=== PATIENT | female | born 1965 | race Caucasian/White ===

== ENCOUNTER 2020-04-22 18:00 | Emergency (ER) | payer OTHER, SELFPAY ==
[2020-04-22] VITALS (13 sets, daily range): BP systolic 146–158; BP diastolic 70–79; PULSE 78–92; RESP 16–18; TEMP 36.6–37.2; O2SAT 97–100
--- NOTE | 2020-04-22 18:01 | DI.CT.S_ITS ---
PROCEDURE: CT ANGIO CHEST PE PROTOCOL INDICATIONS: pleuritic chest pain, short of breath, hypercoag TECHNIQUE: After the administration of intravenous contrast, 2 mm thick sections acquired from the pulmonary apices to the posterior costophrenic angles. 3-dimensional maximum intensity projection (MIP) coronal and sagittal reformats were then acquired through the thorax. For radiation dose reduction, the following was used: automated exposure control, adjustment of mA and/or kV according to patient size. COMPARISON: None. FINDINGS: Image quality: Excellent. Pulmonary arteries: Pulmonary arteries are normal in size, and demonstrate no intraluminal filling defects to suggest central pulmonary embolism. Lungs and pleura: Lungs are clear. No pleural effusions or pneumothorax. Central and peripheral airways are patent. Mediastinum: Heart size is normal, without pericardial effusion. No mediastinal or hilar adenopathy. Thoracic aorta is normal in caliber and enhancement. Esophagus is normal in caliber, without hiatal hernia. Bones and chest wall: No suspicious bony lesions. Ribs and thoracic spine appear intact throughout. Thyroid gland is within normal limits. No axillary or supraclavicular adenopathy. Abdomen: Visualized upper abdominal solid organs appear normal in the early arterial phase of enhancement. Gallbladder is surgically absent. IMPRESSION: 1. No evidence of pulmonary emboli. 2. Bilateral lungs are clear. 3. No mediastinal or hilar lymphadenopathy. Dictated by: Wilfredo Leal M.D. on 04/22/2020 at 17:56 Approved by: Wilfredo Leal M.D. on 04/22/2020 at 18:09
[2020-04-22 18:20] LABS: COVID19 -Nasal RAPID Negative (Negative)
--- NOTE | 2020-04-22 18:21 | PC.NURSE ---
Pt arrived via [facility] with SOB, L shoulder pain radiating to L armpit and L calf pain starting yesterday. received 324mg ASA and 250ml LR in flight. H/o Sjorgens syndrome, lupus, arthritis, and hypothyroid, no daily anticoagulation. R/O PE from Dr oNlan on [place]. AAOx3 and transferred herself over from flight stretcher to ED stretcher and WC to BR. NSR 92, Lungs clear. denies calf pain on palpation at this time. no edema noted. 99-100% RA breathing easy and unlabored. 20G RAC labs obtained and sent. urine obtained and sent. RT in for EKG. COVID swabbed at triage with negative result. Placed on cardiac monitoring. Awaiting further assessment.
[2020-04-22 18:22] LABS: Add Manual Diff / Slide Review NO; Bacteria Urine None Seen; Basophils Absolute Auto 0 /uL (0-100); Basophils Percent Auto 0.8 % (0-2); Eosinophils Absolute Auto 100 /uL (0-450); Eosinophils Percent Auto 2.3 % (2-4); Hematocrit 40.4 % (36-46); Hemoglobin 13.8 g/dL (12.0-16.0); Lymphocytes Absolute Auto 1300 /uL (1100-4500); Lymphocytes Percent Auto 28.3 % (25-40); Mean Corpuscular HGB Conc 34.3 % (30-36); Mean Corpuscular Hemoglobin 28.3 PG (26-34); Mean Corpuscular Volume 82.5 fL (80-100); Monocytes Absolute Auto 400 /uL (0-900); Monocytes Percent Auto 9.7 % (3-14); Neutrophils Absolute Auto 2700 /uL (1500-7000); Neutrophils Percent Auto 58.9 % (50-75); Platelet Count 162 X10^3/uL (150-400); RBC Urine None Seen (0-5/HPF); White Blood Cell Count 4.6 X10^3/uL (4.5-11.0)
[2020-04-22 18:23] LABS: Appearance Urine UA CLEAR; Bilirubin Urine UA NEGATIVE (NEGATIVE); Color Urine UA YELLOW; Glucose Urine UA NEGATIVE (Negative); Ketones Urine UA NEGATIVE (NEGATIVE); Leukocyte Esterase Urine UA 1+ (NEGATIVE); Nitrite Urine UA NEGATIVE (Negative); Occult Blood Urine UA NEGATIVE (Negative); Protein Urine UA NEGATIVE (Negative); Urobilinogen Urine UA 0.2 E.U./dL (0.2)
[2020-04-22 18:25] LABS: pH Urine UA 5.5 (4.5-8.0)
[2020-04-22 18:31] LABS: Culture Indicated Urine Specimen Cultured; WBC Urine 1-5/HPF (0-5/HPF)
[2020-04-22 18:36] LABS: Lactate (Lactic Acid) 0.9 mmol/L (0.7-2.1)
[2020-04-22 18:39] LABS: D Dimer < 200 ng/mL (<230)
[2020-04-22 18:40] LABS: Alanine Aminotransferase 50 IU/L (<35); Albumin 4.2 g/dL (3.5-5.0); Albumin Globulin Ratio 1.8 (1.0-2.8); Alkaline Phosphatase 76 U/L (38-126); Aspartate Aminotransferase 39 IU/L (14-36); BUN Creatinine Ratio 22.2 (6-22); Bilirubin Total 0.4 mg/dL (0.2-1.3); Blood Urea Nitrogen 14 mg/dL (7-17); Calcium 9.1 mg/dL (8.4-10.2); Carbon Dioxide 27 mmol/L (22-32); Chloride 107 mmol/L (98-107); Creatine Kinase 57 U/L (30-135); Estimated Glomerular Filt Rate > 60.0 mL/min (>60); Globulin 2.4 g/dL (1.7-4.1); Glucose 100 mg/dL (70-100); HEMOLYSIS < 15 (0-50); Lactate Dehydrogenase 473 U/L (313-618); Potassium 3.5 mmol/L (3.4-5.1); Sodium 138 mmol/L (137-145); Total Protein 6.6 g/dL (6.3-8.2)
[2020-04-22 18:41] LABS: C-Reactive Protein Quant < 0.5 mg/dL (<1.0)
[2020-04-22 18:49] LABS: NT-proBNP (BNP-Adult 18+) 209 pg/mL (<125); Troponin I < 0.012 ng/mL (0.01-0.034)
[2020-04-22 18:51] LABS: Procalcitonin < 0.05 ng/mL (<0.5)
[2020-04-22 19:08] LABS: Thyroid Stimulating Hormone 1.54 uIU/mL (0.47-4.68)
--- NOTE | 2020-04-22 19:08 | ED.CHESTPAIN ---
HPI - Chest Pain General Chief Complaint: Shortness of Breath/Dyspnea Stated Complaint: sob Time Seen by Provider: 04/22/20 18:01 Source: patient and EMS Mode of arrival: EMS Limitations: no limitations History of Present Illness HPI narrative: 55F nonsmoker with history of asthma, Sjogren's, SLE, and Antiphospholipid syndrome presents by [facility] at her physicians request ([place]) to evaluate for chest pain, shortness of breath and some left calf pain. She developed some central chest squeezing pressure last night while in bed that was without provocation, palliation, or radiation. She had no other concerning symptoms such as dizziness, weakness, or shortness of breath. Nor any N/V/D or unexplained weakness. Related Data Home Medications Medication Instructions Recorded Confirmed hydroxychloroquine [Plaquenil] #0 07/08/16 Previous Rx's Medication Instructions Recorded progesterone micronized 100 mg PO HS #90 cap 02/19/16 epinephrine 0.3 mg IJ SEE INSTRUCTIONS #2 syr 10/28/16 levalbuterol tartrate [Xopenex HFA] 2 puff INH Q6HP PRN #15 gm 10/28/16 levothyroxine [Synthroid] 50 mcg PO QAM #90 tab 12/15/16 thyroid (pork) [Nature-Throid] 32.5 mg PO QAM #90 tab 12/15/16 ketorolac 10 mg PO Q6H PRN #14 tab 04/22/20 Allergies Allergy/AdvReac Type Severity Reaction Status Date / Time cephalexin [CEPHALEXIN] Allergy Intermediate Unverified 08/23/17 12:29 Penicillins [PENICILLINS] Allergy Intermediate Unverified 08/23/17 12:29 Sulfa (Sulfonamide Allergy Intermediate Unverified 08/23/17 12:29 Antibiotics) [SULFA (SULFONAMIDE ANTIBIOTICS)] codeine [CODEINE] Allergy Mild Unverified 08/23/17 12:29 crab [CRAB] AdvReac Severe anaphylacti Unverified 08/23/17 12:29 c Review of Systems Constitutional Constitutional: Denies chills, Denies fatigue, Denies fever(s), Denies frequent falls, Denies lethargy and Denies weakness Eyes Eyes: Denies change in vision, Denies eye discharge, Denies irritation and Denies loss of vision ENT Ears, Nose, Mouth, and Throat: Denies change in voice, Denies dizziness, Denies neck pain, Denies sore throat and Denies throat swelling Cardiovascular Cardiovascular: Reports chest pain, Denies irregular heart rhythm, Denies lightheadedness, Denies palpitations, Denies dyspnea, Denies dyspnea on exertion and Denies orthopnea Respiratory Respiratory: Reports cough, Denies dyspnea, Denies dyspnea on exertion and Denies wheezing Gastrointestinal Gastrointestinal: Denies abdominal pain, Denies change in bowel habits, Denies diarrhea, Denies nausea and Denies vomiting Musculoskeletal Musculoskeletal: Denies neck pain and Denies numbness Integumentary/Breasts Skin/Breast: Denies pruritus, Denies erythema, Denies rash and Denies wounds Neurologic Neurologic: Denies behavioral changes, Denies confusion, Denies dizziness, Denies frequent falls, Denies loss of vision, Denies numbness and Denies weakness Psychiatric Psychiatric: Denies anxiety, Denies behavioral changes, Denies confusion, Denies depression, Denies homicidal ideation and Denies suicidal ideation Endocrine Endocrine: Denies fatigue, Denies flushing and Denies palpitations Hematologic/Lymphatic Hematologic/Lymphatic: Denies easy bruising Allergic/Immunologic Allergic/Immunologic: Denies urticaria, Denies throat swelling and Denies wheezing Patient History Smoking Status: Never smoker alcohol intake frequency: 0-2 drinks per day Substance Use Type: does not use Exam Narrative Exam Narrative: GENERAL: [55] year old patient appears stated age. Well-nourished, well-developed patient, in mild distress. HEAD: Atraumatic. Normocephalic. EYES: Pupils equal round and reactive. Extraocular motions intact. No scleral icterus. No injection or drainage. ENT: Nose without bleeding, purulent drainage. Throat without erythema, tonsillar hypertrophy or exudate. Airway patent. NECK: Trachea midline. Non tender CARDIOVASCULAR: Regular rate and rhythm without murmurs, gallops, or rubs. RESPIRATORY: Clear to auscultation. Breath sounds equal bilaterally. No wheezes, rales, or rhonchi. GASTROINTESTINAL: Abdomen soft, non-tender, nondistended. EXTREMITIES: No edema or joint tenderness. Notably, no left calf pain, swelling, redness or warmth BACK: Nontender without deformity or crepitance. No flank tenderness. NEURO: AOx3. SKIN: No rash or erythema of visible areas Initial Vital Signs Initial Vital Signs: Vital Signs Temperature 97.9 F 04/22/20 18:03 Pulse Rate 78 04/22/20 18:03 Respiratory Rate 16 04/22/20 18:03 Blood Pressure 146/72 H 04/22/20 18:03 Pulse Oximetry 97 04/22/20 18:03 Course Orders Ordered: ED Orders 04/22/20 18:00 COVID19 Stat 04/22/20 18:01 CT angio chest PE protocol Stat 04/22/20 18:02 EKG-12 Lead Stat 04/22/20 18:13 C-Reactive Protein Quant Stat Complete Blood Count AUTO DIFF Stat Comprehensive Metabolic Panel Stat D Dimer Stat Ferritin Stat Lactate (Lactic Acid) Stat Lactate Dehydrogenase Stat NT-proBNP (BNP-Adult 18+) Stat Procalcitonin Stat Thyroid Stimulating Hormone Stat Troponin & CK Cardiac Panel Stat Urinalysis and Microscopic Stat Urine Culture Stat 04/22/20 19:31 EKG-12 Lead Stat 04/22/20 20:23 Troponin I Stat Discontinued Medications Sodium Chloride (Normal Saline 0.9%) 1,000 mls @ 125 mls/hr IV CONT RAMIREZ Last Admin: 04/22/20 19:09 Dose: Not Given Documented by: LORA Ketorolac Tromethamine (Ketorolac 60 Mg/2 Ml Vial) 15 mg IV NOW ONE Stop: 04/22/20 19:32 Last Admin: 04/22/20 19:51 Dose: 15 mg Documented by: LORA Vital Signs Vital signs: Vital Signs - 8 hr 04/22/20 18:03 04/22/20 18:09 04/22/20 18:10 Temperature 97.9 F Pulse Rate 78 91 H 88 Respiratory Rate 16 Blood Pressure 146/72 H 146/72 H Pulse Oximetry 97 99 99 04/22/20 18:46 04/22/20 18:48 04/22/20 18:49 Temperature 98.9 F Pulse Rate 83 84 86 Respiratory Rate Blood Pressure 158/77 H Pulse Oximetry 99 98 99 04/22/20 19:00 04/22/20 19:30 04/22/20 20:00 Temperature Pulse Rate 90 87 84 Respiratory Rate Blood Pressure Pulse Oximetry 100 98 98 04/22/20 20:30 04/22/20 21:05 04/22/20 21:06 Temperature Pulse Rate 82 92 H Respiratory Rate Blood Pressure 157/70 H Pulse Oximetry 99 100 04/22/20 22:01 Temperature Pulse Rate 79 Respiratory Rate 18 Blood Pressure 146/79 H Pulse Oximetry 98 MDM - Chest Pain Lab Data Result diagrams: 04/22/20 18:13 04/22/20 18:13 Labs: Lab Results 04/22/20 04/22/20 04/22/20 Range/Units 18:00 18:13 18:13 WBC (4.5-11.0) X10^3/uL RBC (4.0-5.2) X10^6/uL Hgb (12.0-16.0) g/dL Hct (36-46) % MCV (80-100) fL MCH (26-34) PG MCHC (30-36) % RDW (11.6-14.8) % Plt Count (150-400) X10^3/uL Neut % (Auto) (50-75) % Lymph % (Auto) (25-40) % [place] % (Auto) (3-14) % Eos % (Auto) (2-4) % Baso % (Auto) (0-2) % Neut # (Auto) (7667-2878) /uL Lymph # (Auto) (8898-1399) /uL [place] # (Auto) (0-900) /uL Eos # (Auto) (0-450) /uL Baso # (Auto) (0-100) /uL D-Dimer < 200 (<230) ng/mL Sodium (137-145) mmol/L Potassium (3.4-5.1) mmol/L Chloride (98-107) mmol/L Carbon Dioxide (22-32) mmol/L BUN (7-17) mg/dL Creatinine (0.52-1.04) mg/dL Estimated GFR (>60) mL/min BUN/Creatinine Ratio (6-22) Glucose (70-100) mg/dL Lactate (0.7-2.1) mmol/L Calcium (8.4-10.2) mg/dL Ferritin (11-264) ng/mL Total Bilirubin (0.2-1.3) mg/dL AST (14-36) IU/L ALT (<35) IU/L Alkaline Phosphatase (38-126) U/L Lactate Dehydrogenase (313-618) U/L Total Creatine Kinase (30-135) U/L CK-MB (CK-2) CK-MB (CK-2) Rel Index Troponin I (0.01-0.034) ng/mL C-Reactive Protein (<1.0) mg/dL NT-Pro-B Natriuret Pep (<125) pg/mL Total Protein (6.3-8.2) g/dL Albumin (3.5-5.0) g/dL Globulin (1.7-4.1) g/dL Albumin/Globulin Ratio (1.0-2.8) Procalcitonin < 0.05 (<0.5) ng/mL TSH (0.47-4.68) uIU/mL Urine Color Urine Appearance Urine pH (4.5-8.0) Ur Specific [place] (1.000-1.035) Urine Protein (Negative) Urine Glucose (UA) (Negative) g/dL Urine Ketones (NEGATIVE) Urine Occult Blood (Negative) Urine Nitrate (Negative) Urine Bilirubin (NEGATIVE) Urine Urobilinogen (0.2) E.U./dL Ur Leukocyte Esterase (NEGATIVE) Urine RBC (0-5/HPF) Urine WBC (0-5/HPF) Urine Bacteria (None) Ur Culture Indicated? COVID-19 PCR Negative (Negative) 04/22/20 04/22/20 04/22/20 Range/Units 18:13 18:13 18:13 WBC 4.6 (4.5-11.0) X10^3/uL RBC 4.90 (4.0-5.2) X10^6/uL Hgb 13.8 (12.0-16.0) g/dL Hct 40.4 (36-46) % MCV 82.5 (80-100) fL MCH 28.3 (26-34) PG MCHC 34.3 (30-36) % RDW 13.0 (11.6-14.8) % Plt Count 162 (150-400) X10^3/uL Neut % (Auto) 58.9 (50-75) % Lymph % (Auto) 28.3 (25-40) % [place] % (Auto) 9.7 (3-14) % Eos % (Auto) 2.3 (2-4) % Baso % (Auto) 0.8 (0-2) % Neut # (Auto) 2700 (0907-8210) /uL Lymph # (Auto) 1300 (0801-2585) /uL [place] # (Auto) 400 (0-900) /uL Eos # (Auto) 100 (0-450) /uL Baso # (Auto) 0 (0-100) /uL D-Dimer (<230) ng/mL Sodium 138 (137-145) mmol/L Potassium 3.5 (3.4-5.1) mmol/L Chloride 107 (98-107) mmol/L Carbon Dioxide 27 (22-32) mmol/L BUN 14 (7-17) mg/dL Creatinine 0.63 (0.52-1.04) mg/dL Estimated GFR > 60.0 (>60) mL/min BUN/Creatinine Ratio 22.2 H (6-22) Glucose 100 (70-100) mg/dL Lactate (0.7-2.1) mmol/L Calcium 9.1 (8.4-10.2) mg/dL Ferritin 61 (11-264) ng/mL Total Bilirubin 0.4 (0.2-1.3) mg/dL AST 39 H (14-36) IU/L ALT 50 H (<35) IU/L Alkaline Phosphatase 76 (38-126) U/L Lactate Dehydrogenase 473 (313-618) U/L Total Creatine Kinase 57 (30-135) U/L CK-MB (CK-2) TNP CK-MB (CK-2) Rel Index TNP Troponin I < 0.012 (0.01-0.034) ng/mL C-Reactive Protein < 0.5 (<1.0) mg/dL NT-Pro-B Natriuret Pep 209 H (<125) pg/mL Total Protein 6.6 (6.3-8.2) g/dL Albumin 4.2 (3.5-5.0) g/dL Globulin 2.4 (1.7-4.1) g/dL Albumin/Globulin Ratio 1.8 (1.0-2.8) Procalcitonin (<0.5) ng/mL TSH 1.54 (0.47-4.68) uIU/mL Urine Color Urine Appearance Urine pH (4.5-8.0) Ur Specific [place] (1.000-1.035) Urine Protein (Negative) Urine Glucose (UA) (Negative) g/dL Urine Ketones (NEGATIVE) Urine Occult Blood (Negative) Urine Nitrate (Negative) Urine Bilirubin (NEGATIVE) Urine Urobilinogen (0.2) E.U./dL Ur Leukocyte Esterase (NEGATIVE) Urine RBC (0-5/HPF) Urine WBC (0-5/HPF) Urine Bacteria (None) Ur Culture Indicated? COVID-19 PCR (Negative) 04/22/20 04/22/20 04/22/20 Range/Units 18:13 18:13 20:23 WBC (4.5-11.0) X10^3/uL RBC (4.0-5.2) X10^6/uL Hgb (12.0-16.0) g/dL Hct (36-46) % MCV (80-100) fL MCH (26-34) PG MCHC (30-36) % RDW (11.6-14.8) % Plt Count (150-400) X10^3/uL Neut % (Auto) (50-75) % Lymph % (Auto) (25-40) % [place] % (Auto) (3-14) % Eos % (Auto) (2-4) % Baso % (Auto) (0-2) % Neut # (Auto) (8585-0528) /uL Lymph # (Auto) (6316-6099) /uL [place] # (Auto) (0-900) /uL Eos # (Auto) (0-450) /uL Baso # (Auto) (0-100) /uL D-Dimer (<230) ng/mL Sodium (137-145) mmol/L Potassium (3.4-5.1) mmol/L Chloride (98-107) mmol/L Carbon Dioxide (22-32) mmol/L BUN (7-17) mg/dL Creatinine (0.52-1.04) mg/dL Estimated GFR (>60) mL/min BUN/Creatinine Ratio (6-22) Glucose (70-100) mg/dL Lactate 0.9 (0.7-2.1) mmol/L Calcium (8.4-10.2) mg/dL Ferritin (11-264) ng/mL Total Bilirubin (0.2-1.3) mg/dL AST (14-36) IU/L ALT (<35) IU/L Alkaline Phosphatase (38-126) U/L Lactate Dehydrogenase (313-618) U/L Total Creatine Kinase (30-135) U/L CK-MB (CK-2) CK-MB (CK-2) Rel Index Troponin I < 0.012 (0.01-0.034) ng/mL C-Reactive Protein (<1.0) mg/dL NT-Pro-B Natriuret Pep (<125) pg/mL Total Protein (6.3-8.2) g/dL Albumin (3.5-5.0) g/dL Globulin (1.7-4.1) g/dL Albumin/Globulin Ratio (1.0-2.8) Procalcitonin (<0.5) ng/mL TSH (0.47-4.68) uIU/mL Urine Color Yellow Urine Appearance Clear Urine pH 5.5 (4.5-8.0) Ur Specific [place] 1.010 (1.000-1.035) Urine Protein Negative (Negative) Urine Glucose (UA) Negative (Negative) g/dL Urine Ketones Negative (NEGATIVE) Urine Occult Blood Negative (Negative) Urine Nitrate Negative (Negative) Urine Bilirubin Negative (NEGATIVE) Urine Urobilinogen 0.2 (0.2) E.U./dL Ur Leukocyte Esterase 1+ H (NEGATIVE) Urine RBC None seen (0-5/HPF) Urine WBC 1-5/hpf (0-5/HPF) Urine Bacteria None seen (None) Ur Culture Indicated? Specimen cultured COVID-19 PCR (Negative) Imaging Data CT scan - chest: Radiologist's Impression: [address] [id number] Scan ReportSigned Patient: Anca Abdullahi LMR#: [id number]: [id number]:[id number]/Sex: 55 / FDate of Service: 04/22/20Loc: EDAccession Number: [id number] Procedure: CT angio chest PE protocol Ordering Provider: Soto Luna D.O. PROCEDURE: CT ANGIO CHEST PE PROTOCOL INDICATIONS: pleuritic chest pain, short of breath, hypercoag TECHNIQUE: After the administration of intravenous contrast, 2 mm thick sections acquired from the pulmonary apices to the posterior costophrenic angles. 3-dimensional maximum intensity projection (MIP) coronal and sagittal reformats were then acquired through the thorax. For radiation dose reduction, the following was used: automated exposure control, adjustment of mA and/or kV according to patient size. COMPARISON: None. FINDINGS: Image quality: Excellent. Pulmonary arteries: Pulmonary arteries are normal in size, and demonstrate no intraluminal filling defects to suggest central pulmonary embolism. Lungs and pleura: Lungs are clear. No pleural effusions or pneumothorax. Central and peripheral airways are patent. Mediastinum: Heart size is normal, without pericardial effusion. No mediastinal or hilar adenopathy. Thoracic aorta is normal in caliber and enhancement. Esophagus is normal in caliber, without hiatal hernia. Bones and chest wall: No suspicious bony lesions. Ribs and thoracic spine appear intact throughout. Thyroid gland is within normal limits. No axillary or supraclavicular adenopathy. Abdomen: Visualized upper abdominal solid organs appear normal in the early arterial phase of enhancement. Gallbladder is surgically absent. IMPRESSION: 1. No evidence of pulmonary emboli. 2. Bilateral lungs are clear. 3. No mediastinal or hilar lymphadenopathy. Dictated by: Wilfredo Leal M.D. on 04/22/2020 at 17:56 Approved by: Wilfredo Leal M.D. on 04/22/2020 at 18:09 MDM Narrative Medical decision making narrative: Multiple etiologies for patient's symptoms considered including: [Pulmonary embolism given pleuritic chest pain, recent left calf pain, hypercoagulable medical history, but clearly thought unlikely given negative D-dimer and no findings on CT angiogram. Left calf DVT thought unlikely given lack of classic findings on exam and a negative D-dimer. Cardiac ischemia considered but thought less likely given lack of exertional symptoms, ischemic change on EKG, negative troponin x2. Pneumonia considered but thought less likely given lack of findings on imaging.] Patient's symptoms improved over duration of stay with above-stated therapies. Findings and discharge diagnosis discussed with patient/family followed by verbalization of understanding Return precautions discussed with patient/family whom verbalize understanding. Discharge Plan Departure Patient Disposition: Home Clinical Impression: Atypical chest pain Instructions: DI for Atypical Chest Pain Activity Restrictions/Additional Instructions: *You have been diagnosed with [atypical chest pain, no evidence of pneumonia, pulmonary embolism or cardiac event.] *What to do: *Take medications as directed *Follow up with your primary care provider in 2-3 days, call for an appointment. Let them know you were seen in the Emergency Department and that we ask that you be seen in follow up *Return to ER if you should have any new, worsening or concerning symptoms Prescriptions: New ketorolac 10 mg tablet 10 mg PO Q6H PRN (Reason: pain) Qty: 14 RF: 0 No Action progesterone micronized 100 MG capsule 100 mg PO HS Qty: 90 RF: 1 hydroxychloroquine [Plaquenil] 200 mg tablet Qty: 0 RF: 0 epinephrine 0.3 MG/0.3 ML auto-injector 0.3 mg IJ SEE INSTRUCTIONS Qty: 2 RF: 1 levalbuterol tartrate [Xopenex HFA] 45 MCG/INH HFA aerosol inhaler 2 puff INH Q6HP PRNQty: 15 RF: 0 thyroid (pork) [Nature-Throid] 32.5 MG tablet 32.5 mg PO QAM Qty: 90 RF: 0 levothyroxine [Synthroid] 50 MCG tablet 50 mcg PO QAM Qty: 90 RF: 0 Referrals: Bobby Nolan MD [Primary Care Provider] -
[2020-04-22 19:12] LABS: Ferritin 61 ng/mL (11-264)
[2020-04-22] MEDS: KETOROLAC 60 MG/2 ML VIAL 15 MG IV (19:51)
[2020-04-22 20:53] LABS: Troponin I < 0.012 ng/mL (0.01-0.034)
== END 2020-04-22 22:01 | disposition home or self-care (01) ==
PROVIDERS: Emergency Provider Emergency Medicine; PCP Family Medicine; Referring Provider Family Medicine
DX: R07.89 Other chest pain (principal); R06.02 Shortness of breath; M79.605 Pain in left leg
CPT/HCPCS: 36415; 71275; 80053; 81001; 82550; 82728; 83605; 83615; 83880; 84145; 84443; 84484; 85025; 85379; 86140; 87086; 87635; 93005; 93010; 96374; 99283; 99284; J1885; Q9967

== ENCOUNTER → 2021-01-05 12:14 | Outpatient (CLI) | payer OTHER, SELFPAY | PROVIDERS: PCP Family Medicine; Referring Provider Physician Assistant; Visit Provider Physician Assistant | DX: N39.0 Urinary tract infection, site not specified (principal) | CPT/HCPCS: 87086 ==

== ENCOUNTER → 2021-01-14 16:46 | Outpatient (CLI) | payer OTHER, SELFPAY ==
[2021-01-15 18:15] LABS: RBC Urine None Seen (0-5/HPF)
[2021-01-15 18:42] LABS: Appearance Urine UA CLEAR; Bilirubin Urine UA NEGATIVE (NEGATIVE); Color Urine UA YELLOW; Glucose Urine UA NEGATIVE (Negative); Ketones Urine UA NEGATIVE (NEGATIVE); Leukocyte Esterase Urine UA TRACE (NEGATIVE); Nitrite Urine UA NEGATIVE (Negative); Occult Blood Urine UA NEGATIVE (Negative); Protein Urine UA NEGATIVE (Negative); Urobilinogen Urine UA 0.2 E.U./dL (0.2)
[2021-01-15 18:54] LABS: pH Urine UA 5.5 (4.5-8.0)
[2021-01-15 18:55] LABS: Bacteria Urine Occasional (0-1); Calcium Oxalate Crystals Urine Few; Culture Indicated Urine Specimen Cultured; Squamous Epithelial Cell Urine 0-1 /HPF (0-5/HPF); WBC Urine 1-5/HPF (0-5/HPF)
== END ==
PROVIDERS: PCP Family Medicine; Visit Provider Family Medicine
DX: Z91.89 Other specified personal risk factors, not elsewhere classified (principal)
CPT/HCPCS: 81001; 87086

== ENCOUNTER 2022-02-19 19:16 | Emergency (ER) | payer OTHER, SELFPAY ==
--- NOTE | 2022-02-19 19:13 | DI.RAD.S_ITS ---
PROCEDURE: XR ANKLE LT MIN 3V INDICATIONS: fall with ankle/knee pain, largely over lateral malleolus TECHNIQUE: 3 views of the ankle were acquired. COMPARISON: None. FINDINGS: Bones: No fractures or dislocations. Ankle mortise is normally aligned. No suspicious bony lesions. Mild degenerative joint disease. There is a small intra-articular body anterior to the tibiotalar joint. Calcaneal spurring. Soft tissues: No tibiotalar joint effusion. Achilles tendon appears normal. IMPRESSION: 1. No acute osseous abnormalities. 2. Mild degenerative joint disease. 3. And intra-articular body in the anterior tibiotalar joint. 4. Calcaneal spurring. Dictated by: Tiffany Brandon M.D. on 02/19/2022 at 20:13 Approved by: Tiffany Brandon M.D. on 02/19/2022 at 20:14
--- NOTE | 2022-02-19 19:13 | DI.RAD.S_ITS ---
PROCEDURE: XR KNEE LT 3V INDICATIONS: fall with ankle/knee pain TECHNIQUE: 3 views of the knee were acquired. COMPARISON: [facility], MR, MR KNEE LEFT WITHOUT CONTRAST, 07/05/2018, 18:04. [facility], CR, XR KNEE 4+ VIEWS LEFT, 03/25/2021, 15:24. FINDINGS: Bones: No fractures or dislocations. No suspicious bony lesions. Mild tricompartmental knee joint degeneration. Soft tissues: No joint effusion. No suspicious soft tissue calcifications. IMPRESSION: No acute osseous abnormalities. Mild degenerative joint disease. Dictated by: Tiffany Brandon M.D. on 02/19/2022 at 20:14 Approved by: Tiffany Brandon M.D. on 02/19/2022 at 20:15
[2022-02-19 19:20] VITALS: BP 145/65; PULSE 83; RESP 18; BMI 32.5
--- NOTE | 2022-02-19 19:28 | ED_ITS ---
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 She was in her normal state of health and was stepping off of her deck when she rolled her ankle and fell which resulted in significant ankle and knee pain. She denies any head neck or back injury. She denies prodromal symptoms such as dizziness, weakness or lightheadedness nor any chest pain or shortness of breath. She has significant pain in both ankle and knee and though there is no obvious deformity she can not weightbear due to this pain. She denies any numbness, tingling or weakness Related Data Home Medications Medication Instructions Recorded Confirmed hydroxychloroquine 200 mg tablet ##0 07/08/16 10/02/20 (Plaquenil) bupropion HCl 150 mg 24 hr tablet, 150 mg PO QAM 01/24/22 01/24/22 extended release hydroxychloroquine 200 mg tablet 400 mg PO DAILY 01/24/22 01/24/22 Previous Rx's Medication Instructions Recorded progesterone micronized 100 mg 100 mg PO HS #90 caps 02/19/16 capsule epinephrine 0.3 mg/0.3 mL 0.3 mg (0.3 mL) IJ SEE 10/28/16 injection, auto-injector INSTRUCTIONS ##2 levalbuterol tartrate 45 2 puff INH Q6HP PRN ##15 10/28/16 mcg/actuation aerosol inhaler (Xopenex HFA) levothyroxine 50 mcg tablet 50 mcg PO QAM #90 tabs 12/15/16 (Synthroid) thyroid (pork) 32.5 mg tablet 32.5 mg PO QAM #90 tabs 12/15/16 (Nature-Throid) Allergies Allergy/AdvReac Type Severity Reaction Status Date / Time cephalexin [CEPHALEXIN] Allergy Intermediate Verified 01/13/21 14:31 nitrofurantoin Allergy Intermediate tongue Verified 01/13/21 14:31 [From Macrobid] swelling Penicillins [PENICILLINS] Allergy Intermediate Verified 01/13/21 14:31 Sulfa (Sulfonamide Allergy Intermediate Verified 01/13/21 14:31 Antibiotics) [SULFA (SULFONAMIDE ANTIBIOTICS)] codeine [CODEINE] Allergy Mild Verified 01/13/21 14:31 crab [CRAB] AdvReac Severe anaphylacti Verified 01/13/21 14:31 c doxycycline AdvReac Intermediate vomitting Verified 01/13/21 14:31 Review of Systems Review of Systems Narrative: GENERAL: Denies chills, fatigue, malaise, fever, sweats. HEENT: Denies sinus pain, ear pain, sore throat, difficulty swallowing, dizziness. RESPIRATORY: Denies dyspnea, cough, wheezing, hemoptysis, sputum. CARDIOVASCULAR: Denies chest pain, palpitations, orthopnea, edema, GASTROINTESTINAL: Denies nausea, vomiting, abdominal pain, diarrhea, constipation, melena. : Denies dysuria, frequency, incontinence, hematuria, urinary retention. MUSCULOSKELETAL: See HPI SKIN: Denies rash, skin lesions, or other NEUROLOGIC: Denies weakness, headache, numbness, change in speech, confusion, seizures, incoordination. PSYCHIATRIC: No concerning psychosocial issues. 12 point review of systems is negative except for those stated above Patient History Social History Smoking Status: Never smoker Smoking Status: Never smoker alcohol intake frequency: 0-2 drinks per day Substance Use Type: does not use Exam Narrative Exam Narrative: GENERAL: [57] year old patient appears stated age. Well-developed patient, in mild distress. Complaining of ankle and knee pain, GCS 15 HEAD: Atraumatic. Normocephalic. EYES: Pupils equal round and reactive. Extraocular motions intact. No scleral icterus. No injection or drainage. ENT: Nose without bleeding, purulent drainage. Throat without erythema, tonsillar hypertrophy or exudate. Airway patent. NECK: Trachea midline. Non tender CARDIOVASCULAR: Regular rate and rhythm without murmurs, gallops, or rubs. RESPIRATORY: Clear to auscultation. Breath sounds equal bilaterally. No wheezes, rales, or rhonchi. GASTROINTESTINAL: Abdomen soft, non-tender, nondistended. EXTREMITIES: Left knee with tenderness to palpation, minimal bruising, no obvious deformity or effusion, no ligamentous laxity or instability. Left ankle is in splint by EMS, no obvious deformity, sensation and range of motion of toes intact, dorsalis pedis pulse intact. Tender to palpate of lateral malleolus BACK: Nontender without deformity or crepitance. No flank tenderness. NEURO: AOx3. SKIN: No rash or erythema of visible areas Initial Vital Signs Initial Vital Signs: Vital Signs Pulse Rate 83 02/19/22 19:20 Respiratory Rate 18 02/19/22 19:20 Blood Pressure 145/65 H 02/19/22 19:20 Course Orders Ordered: ED Orders 02/19/22 19:13 XR ankle LT min 3V Stat XR knee LT 3V Stat 02/19/22 20:23 CT LE LT wo con Stat Discontinued Medications Acetaminophen (Acetaminophen 325 Mg Tablet) 975 mg PO NOW ONE Stop: 02/19/22 20:24 Last Admin: 02/19/22 20:54 Dose: 975 mg Documented By: AT Vital Signs Vital signs: Vital Signs - 8 hr 02/19/22 19:20 02/19/22 22:10 Pulse Rate 83 70 Respiratory Rate 18 18 Blood Pressure 145/65 H 137/65 Pulse Oximetry 99 Oxygen Delivery Method Room Air MDM - Extremity Injury (Lower) Imaging Data Extremity x-ray #1: Radiologist's Impression: Left knee impression: No acute osseous abnormalities. Mild degenerative joint disease Extremity x-ray #2: Radiologist's Impression: No acute osseous abnormalities CT LE: Radiologist's Impression: Anca Abdullahi??57??F??1965 ? Allergy/Adv: cephalexin, nitrofurantoin, Penicillins, Sulfa (Sulfonamide Antibiotics), codeine, crab, doxycycline (More??) Close Lower Extremity CT (Signed) Flako Treviño - 02/19/22 Knee X-Ray 02/19/22 Ankle X-Ray 02/19/22 Chest CTA (Signed) Wilfredo Leal - 04/22/20 [place] [address] CT Scan Report Signed Patient: Anca Abdullahi MR#: [id number] : 1965 Acct:[id number] Age/Sex: 57 / F Date of Service: 02/19/22 Loc: ED Accession Number: [id number] ?? Procedure: CT LE LT wo con Ordering Provider: Soto Luna D.O. PROCEDURE:? CT LE LT W CON ? INDICATIONS:? fall with severe pain in knee and ankle, cannot weightbear ? TECHNIQUE:? Noncontrast 3-mm axial sections acquired from the distal tibial shaft to the talar dome, with coronal and sagittal reformats..? ? ? COMPARISON:? [facility], CR, XR KNEE LT 3V, 02/19/2022, 19:31.? [facility], CR, XR ANKLE LT MIN 3V, 02/19/2022, 19:31. ? FINDINGS:? Image quality:? Excellent.? ? Bones:? No trauma found.? No bone lesion identified. ? Soft tissues:? No sign of inflammation or gas within the soft tissues.? No foreign body seen. ? IMPRESSION:? Normal left lower extremity from knee through ankle.? Please note that MR scanning may detect bone bruising or ligamentous injury that is not identifiable by CT scanning or plain film imaging. ? ? Dictated by: Flako Treviño M.D. on 02/19/2022 at 21:46 ? ? Approved by: Flako Treviño M.D. on 02/19/2022 at 21:48 ? Discharge Plan Departure Patient Disposition: Home Clinical Impression: Severe ankle sprain Instructions: DI for Ankle Sprain Activity Restrictions/Additional Instructions: *You have been diagnosed with [left ankle sprain without radiographic evidence of fracture or dislocation] *What to do: *Please continue to take your regular medications as directed. [ ] New medication prescriptions sent to your pharmacy: [ ] [ ] New medication written as a paper prescription [x] Tylenol and occasional Motrin for pain *Please follow up with Dr. Faye Blanca] of [facility] in 2-3 days, call for an appointment. Let them know you were seen in the Emergency Department and that we ask that you be seen in follow up. We will electronically transmit a record of today's note if your PCP is in our system *Return to Emergency Department if you should have any new, worsening or concerning symptoms, such as [worsening pain, significant swelling, cold extremities, numbness, tingling, weakness or other bothersome symptoms Prescriptions: No Action progesterone micronized 100 MG capsule 100 mg PO HS Qty: 90 1RF hydroxychloroquine [Plaquenil] 200 mg tablet Qty: 0 epinephrine 0.3 MG/0.3 ML auto-injector 0.3 mg IJ SEE INSTRUCTIONS Qty: 2 1RF levalbuterol tartrate [Xopenex HFA] 45 MCG/INH HFA aerosol inhaler 2 puff INH Q6HP PRNQty: 15 0RF thyroid (pork) [Nature-Throid] 32.5 MG tablet 32.5 mg PO QAM Qty: 90 0RF levothyroxine [Synthroid] 50 MCG tablet 50 mcg PO QAM Qty: 90 0RF bupropion HCl 150 mg tablet extended release 24 hr 150 mg PO QAM Rx Instructions: Take 1 tablet (150 mg) by mouth daily. REFILLS 5 hydroxychloroquine 200 mg tablet 400 mg PO DAILY Rx Instructions: Take 400 mg by mouth daily. Referrals: Bobby Nolan MD [Primary Care Provider] - Visit Report Forms: Patient Portal/API
--- NOTE | 2022-02-19 20:23 | DI.CT.S_ITS ---
PROCEDURE: CT LE LT W CON INDICATIONS: fall with severe pain in knee and ankle, cannot weightbear TECHNIQUE: Noncontrast 3-mm axial sections acquired from the distal tibial shaft to the talar dome, with coronal and sagittal reformats.. COMPARISON: [facility], CR, XR KNEE LT 3V, 02/19/2022, 19:31. [facility], CR, XR ANKLE LT MIN 3V, 02/19/2022, 19:31. FINDINGS: Image quality: Excellent. Bones: No trauma found. No bone lesion identified. Soft tissues: No sign of inflammation or gas within the soft tissues. No foreign body seen. IMPRESSION: Normal left lower extremity from knee through ankle. Please note that MR scanning may detect bone bruising or ligamentous injury that is not identifiable by CT scanning or plain film imaging. Dictated by: Flako Treviño M.D. on 02/19/2022 at 21:46 Approved by: Flako Treviño M.D. on 02/19/2022 at 21:48
[2022-02-19] MEDS: ACETAMINOPHEN 325 MG TABLET 975 MG PO (20:54)
[2022-02-19 22:10] VITALS: BP 137/65; PULSE 70; RESP 18; O2SAT 99
== END 2022-02-19 22:25 | disposition home or self-care (01) ==
PROVIDERS: Emergency Provider Emergency Medicine; PCP Family Medicine
DX: S93.402A Sprain of unspecified ligament of left ankle, initial encounter (principal); W18.30XA Fall on same level, unspecified, initial encounter
CPT/HCPCS: 73562; 73610; 73700; 99283; 99284

== ENCOUNTER → 2022-03-13 14:42 | Outpatient (CLI) | payer OTHER, SELFPAY ==
--- NOTE | 2022-03-13 | DI.MRI.S_ITS ---
PROCEDURE: MR ANKLE RT WO CON INDICATIONS: Sprain of other ligament of left ankle, initial en TECHNIQUE: Noncontrast sagittal T1 spin echo and T2 fast spin echo with fat saturation, axial proton density fast spin echo and T2 fast spin echo with fat saturation, coronal T1 spin echo and T2 fast spin echo with fat saturation through the ankle/hindfoot. COMPARISON: [facility], CT, CT LE LT WO CON, 02/19/2022, 21:21. FINDINGS: Image quality: Excellent. Bones and joints: Marrow edema is noted involving tip of medial malleolus and adjacent anterior weight-bearing portion of talus without definite fracture line suggestive of bony contusion. No other area of abnormal marrow signal. No other area of abnormal marrow signal. No hindfoot coalitions. No osteochondral injuries of the talar dome. Small plantar calcaneal enthesophyte is seen. There is small tibiotalar joint effusion, no gross loose bodies. Medial structures: Mildly thickened posterior tibialis tendon and flexor digitorum longus tendons at the level of medial malleolus tip and mid to distal talus is seen with small amount of fluid distending tendon sheath suggestive of low-grade tenosynovitis. The flexor hallucis longus tendon is intact. The posterior tibial neurovascular bundle appears normal within the tarsal tunnel, without extrinsic mass effect. Both deltoid ligament and spring ligament complex are attenuated with intrasubstance T2 hyperintense signal suggestive of sprain/low to moderate grade partial-thickness tear. Lateral structures: The anterior talofibular, calcaneofibular, and posterior talofibular ligaments appear markedly attenuated with intrasubstance T2 hyperintense signal particularly involving anterior talofibular ligament. More superiorly, the anterior and posterior tibiofibular ligaments appear intact, as is the intermalleolar ligament. The tibiofibular syndesmosis is normal in width at 2 mm or less. The peroneus longus and brevis tendons are thickened with small amount of fluid extension extending from the level of mid to distal calcaneus to the level of tarsal metatarsal joints. Adjacent bony peroneal tubercle and retrotrochlear prominence are normal in size. The sinus tarsi demonstrates normal fatty signal, without edema, fibrosis, or cyst formation. Visualized sinus tarsi components (cervical ligament, interosseous talocalcaneal ligament, roots of the inferior extensor retinaculum) appear normal. The calcaneonavicular and calcaneocuboid components of the bifurcate ligament appear intact. The dorsal calcaneocuboid ligament appears intact. Anterior structures: The tibialis anterior, extensor hallucis longus, and extensor digitorum longus tendons appear intact. The dorsal talonavicular ligament appears intact. Posterior and plantar structures: Achilles tendon is intact. Thickened medial band of plantar fascia at its calcaneal insertion is seen. No abductor digiti quinti muscle atrophy to suggest Rojas neuropathy. IMPRESSION: 1. Bony contusion involving tip of medial malleolus and adjacent medial periphery of talus weight-bearing portion. No other area of abnormal marrow signal. No fracture or dislocation. Small tibiotalar joint effusion, no gross loose bodies. 2. Low-grade tenosynovitis involving posterior tibialis tendon and flexor digitorum longus tendon as above. Low to moderate grade tenosynovitis involving peroneus tendons as above. No full-thickness ankle tendon rupture. 3. Low-grade sprain/partial-thickness tear involving deltoid ligament and spring ligament complex. Moderate grade sprain/partial-thickness tear involving anterior and posterior talofibular ligaments and calcaneofibular ligament. 4. Well-defined plantar calcaneal enthesophyte with thickened medial band of plantar fascia suggestive of low-grade plantar fasciitis. Dictated by: Wilfredo Leal M.D. on 03/14/2022 at 9:03 Approved by: Wilfredo Leal M.D. on 03/14/2022 at 9:17
== END ==
PROVIDERS: PCP Family Medicine; Referring Provider Family Medicine; Visit Provider Family Medicine
DX: S93.492A Sprain of other ligament of left ankle, initial encounter (principal); S90.02XA Contusion of left ankle, initial encounter; S93.422A Sprain of deltoid ligament of left ankle, initial encounter; M25.472 Effusion, left ankle; M65.872 Other synovitis and tenosynovitis, left ankle and foot; S93.412A Sprain of calcaneofibular ligament of left ankle, initial encounter; M77.32 Calcaneal spur, left foot
CPT/HCPCS: 73721

== ENCOUNTER → 2022-03-25 14:08 | Outpatient (CLI) | payer OTHER, SELFPAY ==
--- NOTE | 2022-03-25 14:11 | DI.US.S_ITS ---
PROCEDURE: US PERIPH VENOUS LOW EXTREM LT INDICATIONS: SWELLING/HARD LUMP IN CALF TECHNIQUE: Real-time imaging, as well as color and pulse Doppler interrogation, were performed of the lower extremity deep veins from the inguinal ligament to the popliteal fossa. COMPARISON: None. FINDINGS: The common femoral, femoral and popliteal veins are normally compressible, and free of intraluminal thrombus. Color and pulse Doppler demonstrate normal phasic intraluminal flow. There is normal augmentation response to distal compression maneuver. Ill-defined fluid is seen adjacent to lateral calf muscle and tendon extending from mid calf to distal calf/upper ankle and is of indeterminate significance. IMPRESSION: 1. No evidence of DVT in visualized left lower extremity veins. 2. Fluid along posterior lateral aspect of mid to distal left lower leg as above. If indicated, consider MRI of ankle/lower leg for evaluation of internal derangement. Dictated by: Wilfredo Leal M.D. on 03/25/2022 at 16:15 Approved by: Wilfredo Leal M.D. on 03/25/2022 at 16:17
== END ==
PROVIDERS: PCP Family Medicine; Referring Provider Orthopaedic Surgery Foot and Ankle Surgery; Visit Provider Orthopaedic Surgery Foot and Ankle Surgery
DX: R22.42 Localized swelling, mass and lump, left lower limb (principal); S93.422A Sprain of deltoid ligament of left ankle, initial encounter; M79.89 Other specified soft tissue disorders
CPT/HCPCS: 93971

== ENCOUNTER 2025-01-24 11:01 | Observation (INO) | payer OTHER, SELFPAY ==
[2025-01-24] VITALS (29 sets, daily range): BP systolic 99–175; BP diastolic 48–74; PULSE 66–80; RESP 12–28; TEMP 35.6–37.1; O2SAT 92–100; BMI 34.0
--- NOTE | 2025-01-24 | DI.ECHO.S_ITS ---
[facility] : : [address] : [place] : : [address] : : Phone: [phone] Echocardiogram Report + + :Name: MARLEN JIMENES Study Date: 01/24/2025 Height: 61 in : [facility] ReadingLocation: Weight: 180 lb : : Gender: Female BSA: 1.8 m2 : :: 1965 Age: 60 yrs BP: 116/74 mmHg: :Reason For Study: TIA : :Ordering Physician: CHET, : :ROGER Hassan Performed By: Neil Marc : :Referring: ROGER ROSENBERG : + + Interpretation Summary The ejection fraction is estimated to be 55-60%. Normal diastolic function. The right ventricle is normal in size and function. Pulmonary artery pressures cannot be estimated because of the lack of a measurable TR jet velocity but the IVC suggests a CVP of around 3 mmHg. Doppler interrogation and injection of saline echo contrast shows no evidence for an interatrial shunt. Procedure: A two-dimensional transthoracic echocardiogram with color flow and Doppler was performed. The study quality was technically adequate. There is no prior echocardiogram noted for this patient. A saline contrast injection was performed to assess for cardiac shunting. The patient was in normal sinus rhythm during the exam. Left Ventricle: The left ventricle is normal in size. Left ventricular wall thickness is borderline increased. Left ventricular systolic function is normal. The ejection fraction is estimated to be 55-60%. There are no focal wall motion abnormalities. Normal diastolic function. Right Ventricle: The right ventricle is normal in size and function. Atria: The left atrial size is normal. Right atrial size is normal. Doppler interrogation and injection of saline echo contrast shows no evidence for an interatrial shunt. Bubble study was captured on image frame(s) # [id number]. Mitral Valve: The mitral valve leaflets appear to open well. There is no mitral valve stenosis. There is trace mitral regurgitation. Aortic Valve: The aortic valve is trileaflet. The aortic valve opens well. There is no aortic valve stenosis. No aortic regurgitation is present. Tricuspid Valve: The tricuspid valve leaflets are thin and pliable. There is trace tricuspid regurgitation. Pulmonary artery pressures cannot be estimated because of the lack of a measurable TR jet velocity but the IVC suggests a CVP of around 3 mmHg. Pulmonic Valve: The pulmonic valve is not well seen, but is grossly normal. There is trace pulmonic regurgitation. Great Vessels: The aortic root is normal size. The ascending aorta is normal in size. The aortic arch could not be visualized. The IVC is of normal diameter and collapses greater than 50% with a sniff. This suggests a low right atrial pressure of 3 mm Hg. Pericardium/ Pleura There is no pericardial effusion. MMode/2D Measurements & Calculations LVIDd: 4.2 cm LVOT diam: 2.0 cm LVIDs: 2.7 cm Ao root diam: 2.8 cm FS: 36.5 % asc Aorta Diam: 2.7 cm IVSd: 0.98 cm LVPWd: 0.96 cm LV frank. diameter/BSA (cm/m^2): 2.3 LV sys. diameter/BSA (cm/m^2): 1.5 LA A2 area: 14.0 cm2 IVC diam: 1.7 cm LA A4 area: 17.0 cm2 LA length (vol): 5.1 cm LA vol: 39.5 ml LA vol index: 21.8 ml/m2 RVD1 (basal): 2.3 cm RVD2 (mid): 1.9 cm TAPSE: 2.0 cm Doppler Measurements & Calculations Ao V2 max: 184.0 cm/sec LVOT Max Og: 113.5 cm/sec Ao V2 mean: 125.8 cm/sec LV V1 max P.1 mmHg Ao max P.5 mmHg LV V1 VTI: 23.3 cm Ao mean P.0 mmHg EMA(I,D): 2.1 cm2 Ao V2 VTI: 33.5 cm EMA(V,D): 1.9 cm2 sev ratio: 0.69 EMA indexed to BSA (cm^2/m^2): 1.2 MV E max og: 81.6 cm/sec TR max og: 211.7 cm/sec MV A max og: 89.3 cm/sec TR max P.9 mmHg MV E/A: 0.91 PA V2 max: 131.0 cm/sec Med Peak E' Og: 9.5 cm/sec PA V2 mean: 90.3 cm/sec E/E' med: 8.5 PA mean P.7 mmHg Lat Peak E' Og: 7.9 cm/sec PA pr(Accel): 27.6 mmHg E/E' lat: 10.3 E/e' average: 9.4 MV dec time: 0.19 sec SV(LVOT): 70.6 ml Reading Physician:05:14 PM
--- NOTE | 2025-01-24 11:22 | DI.CT.S_ITS ---
PROCEDURE: CT ANGIO HEAD AND NECK INDICATIONS: neuro deficit TECHNIQUE: After the administration of intravenous contrast, 1 mm thick sections acquired from the aortic arch through the [place] of [place]. 3-dimensional ukkvmqk-mculbjdoq-ikobynvwyp (MIP) and/or volume rendering reformats were acquired of the central intracranial vasculature and neck separately. For radiation dose reduction, the following was used: automated exposure control, adjustment of mA and/or kV according to patient size. COMPARISON: None. FINDINGS: Image quality: Diagnostic. Cerebral CT Angiogram: Internal carotid arteries: No acute findings. Intracranial ICA are patent with no significant stenosis. No occlusion. No aneurysm. Anterior cerebral arteries: Unremarkable. No significant stenosis. No occlusion. No aneurysm. Middle cerebral arteries: Unremarkable. No significant stenosis. No occlusion. No aneurysm. Posterior cerebral arteries: Unremarkable. No significant stenosis. No occlusion. No aneurysm. Basilar artery: Unremarkable. No significant stenosis. No occlusion. No aneurysm. Vertebral arteries: Unremarkable as visualized. Dural venous sinuses: Unremarkable given phase of enhancement. Other: Arterial phase appearance of the brain parenchyma is unremarkable. Neck CT Angiogram: Internal carotid arteries: Unremarkable. No significant stenosis. No dissection or occlusion. Common carotid arteries: Unremarkable. No significant stenosis. No dissection or occlusion. External carotid arteries: Unremarkable. No occlusion. Vertebral arteries: Unremarkable. No significant stenosis. No dissection or occlusion. Aortic Arch and Mediastinum: Partially visualized aortic arch unremarkable without evidence of aneurysm. Origins of the great vessels unremarkable. Other: Right thyroid 1.9 cm nodule.. IMPRESSION: No significant intracranial arterial abnormality is seen. No significant abnormality is seen within the arteries of the neck. Indeterminate right thyroid nodule. Recommend follow-up outpatient thyroid ultrasound for further evaluation. Any quantitative measurements of stenosis were performed using NASCET criteria. Approved by: Jin yBrd M.D. on 01/24/2025 at 12:04
--- NOTE | 2025-01-24 11:22 | DI.CT.S_ITS ---
PROCEDURE: CT HEAD/BRAIN WO CON INDICATIONS: neuro deficit TECHNIQUE: Noncontrast 4.5 mm thick angled axial sections acquired from the foramen magnum to the vertex, with coronal and sagittal reformats. For radiation dose reduction, the following was used: automated exposure control, adjustment of mA and/or kV according to patient size. COMPARISON: None. FINDINGS: Image quality: Diagnostic. CSF spaces: Basal cisterns are patent. No extra-axial fluid collections. Ventricles are normal in size and shape. Brain: No midline shift. No intracranial mass effect or hemorrhage. Anne- white matter interface is normal. Skull and face: Calvarium and visualized facial bones are intact, without suspicious lesions. Sinuses: Visualized sinuses and mastoids are clear. IMPRESSION: No acute intracranial pathology. Approved by: Jin Byrd M.D. on 01/24/2025 at 11:59
--- NOTE | 2025-01-24 11:23 | EKG_ITS ---
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
[2025-01-24 11:30] LABS: Add Manual Diff / Slide Review NO; Hematocrit 38.0 % (36-46); Hemoglobin 13.6 g/dL (12.0-16.0); Lymphocytes Absolute Auto 1000 /uL (1100-4500); Mean Corpuscular HGB Conc 35.7 % (30-36); Mean Corpuscular Hemoglobin 29.2 PG (26-34); Mean Corpuscular Volume 81.8 fL (80-100); Platelet Count 170 X10^3/uL (150-400)
[2025-01-24 11:38] LABS: INR 1.1 (0.9-1.3); Prothrombin Time 12.4 SECONDS (9.4-12.5)
--- NOTE | 2025-01-24 11:38 | PC.NURSE ---
Patient reports history of a TIA earlier this year and reports ongoing LEFT leg weakness since that event. Patient reporting being unsteady with ambulation and generalized weakness now. Patient denies current chest pain, headache and nausea. States the chest pain, nausea and headache were earlier this morning.
[2025-01-24 11:40] LABS: PTT Partial Thromboplastin Tim 29 SECONDS (25.1-36.5)
[2025-01-24 11:43] LABS: Alanine Aminotransferase 47 IU/L (<35); Albumin 4.4 g/dL (3.5-5.0); Albumin Globulin Ratio 1.8 (1.0-2.8); Alkaline Phosphatase 87 U/L (38-126); Blood Urea Nitrogen 14 mg/dL (7-17); Calcium 9.4 mg/dL (8.4-10.2); Carbon Dioxide 25 mmol/L (22-32); Chloride 98 mmol/L (98-107); Creatine Kinase 86 U/L (30-135); Estimated Glomerular Filt Rate > 60 mL/min (>60); Ethanol (ETOH) < 10 mg/dL (<10); Globulin 2.5 g/dL (1.7-4.1); Glucose 98 mg/dL (70-99); HEMOLYSIS < 15 (0-50); Potassium 3.7 mmol/L (3.4-5.1); Sodium 133 mmol/L (137-145); Total Protein 6.9 g/dL (6.3-8.2)
--- NOTE | 2025-01-24 11:46 | ED.NEUROSD ---
HPI - Neuro Symptoms/Deficit General Chief Complaint: Neuro Symptoms/Deficit Stated Complaint: Code stroke-LKW 01/23/25 2200,ataxia,blurred vision History of Present Illness HPI Narrative: This is a 52-year-old female who reports a history of TIA but has a baseline neurologic deficits. Also has a history of lupus. She is brought in by EMS with a headache nausea and ataxia. Reports that throughout the day yesterday she had a headache. The patient does get headaches but this headache seemed more persistent than usual and she says she felt ?off?. She has baseline left arm and left leg weakness since August of this year when she had what she said was at ?TIA?, she was seen in [facility] for this and I have requested records. She says that she went to bed at 10:00 p.m. last night and woke up this morning more unsteady than usual. EMS was called, they found her to be somewhat hypertensive, with a normal blood glucose and ataxia with left-sided arm and leg weakness. Had some nausea received antiemetics prior to arrival at the hospital and then was transported here. Related Data Home Medications ?Medication ?Instructions ?Recorded ?Confirmed hydroxychloroquine 200 mg tablet ##0 07/08/16 10/02/20 (Plaquenil) bupropion HCl 150 mg 24 hr tablet, 150 mg PO QAM 01/24/22 01/24/22 extended release hydroxychloroquine 200 mg tablet 400 mg PO DAILY 01/24/22 01/24/22 Previous Rx's ?Medication ?Instructions ?Recorded progesterone micronized 100 mg 100 mg PO HS #90 caps 02/19/16 capsule epinephrine 0.3 mg/0.3 mL 0.3 mg (0.3 mL) IJ SEE 10/28/16 injection, auto-injector INSTRUCTIONS ##2 levalbuterol tartrate 45 2 puff INH Q6HP PRN ##15 10/28/16 mcg/actuation aerosol inhaler (Xopenex HFA) levothyroxine 50 mcg tablet 50 mcg PO QAM #90 tabs 12/15/16 (Synthroid) thyroid (pork) 32.5 mg tablet 32.5 mg PO QAM #90 tabs 12/15/16 (Nature-Throid) Allergies Allergy/AdvReac Type Severity Reaction Status Date / Time cephalexin (CEPHALEXIN) Allergy Intermediate Verified 01/13/21 14:31 nitrofurantoin (From Allergy Intermediate tongue Verified 01/13/21 14:31 Macrobid) swelling Penicillins (PENICILLINS) Allergy Intermediate Verified 01/13/21 14:31 Sulfa (Sulfonamide Allergy Intermediate Verified 01/13/21 14:31 Antibiotics) (SULFA (SULFONAMIDE ANTIBIOTICS)) codeine (CODEINE) Allergy Mild Verified 01/13/21 14:31 crab (CRAB) AdvReac Severe anaphylacti Verified 01/13/21 14:31 c doxycycline AdvReac Intermediate vomitting Verified 01/13/21 14:31 Patient History Medical History (Updated 01/24/25 @ 15:11 by Flex Welsh MD) Lupus Sjogren's disease Hypothyroidism TIA (transient ischemic attack) UTI (urinary tract infection) alcohol intake frequency: 0-2 drinks per day Exam Initial Vital Signs Initial Vital Signs: Vital Signs Pulse Rate 79 01/24/25 11:06 Pulse Oximetry 100 01/24/25 11:06 Vital signs are reviewed Const Other: Alert fully oriented HENMN HENMN Other: Normocephalic and atraumatic Neck Other: Supple, no carotid bruit Resp Other: Normal respiratory effort lungs are clear Cardio Other: Regular rhythm rate no murmur rub or gallop Skin Other: Warm and dry Neuro Other: Alert and oriented. Pupils are equal round and reactive extraocular movements are intact no nystagmus no facial droop tongue protrudes to midline uvula elevates in the midline. Has downward drift of the left leg has a ataxia of the left arm and leg has decreased sensation in the left arm and leg. Speech is fluent no visual field cuts. No facial palsy. By the patient's report only the ataxia is new compared to her baseline. Course Orders Ordered: ED Orders 01/24/25 11:22 CT angio head and neck Stat CT head/brain wo con Stat EKG-12 Lead Stat 01/24/25 11:23 Complete Blood Count AUTO DIFF Stat Comprehensive Metabolic Panel Stat Ethanol (ETOH) Stat PTT Partial Thromboplastin Tao Stat Prothrombin Time INR Stat Troponin & CK Cardiac Panel Stat 01/24/25 11:33 COVID19 -Nasal RAPID Stat 01/24/25 12:07 Urinalysis and Microscopic Stat Urine Drug Screen, Rapid Stat 01/24/25 15:13 Consult to Occupational Therapy Evaluate & Treat Consult to Physical Therapy Evaluate & Treat 01/25/25 MR head/brain wo con Stat 01/25/25 05:00 Basic Metabolic Panel Routine Albuterol (Albuterol 2.5 Mg/3 Ml Neb (Adult)) 2.5 mg INH Q6H PRN PRN Reason: Wheezing Bupropion HCl (Bupropion Xl 150 Mg Tab) 150 mg PO DAILY RAMIREZ Enoxaparin Sodium (Enoxaparin 40 Mg/0.4 Ml Syringe) 40 mg SUBCUT DAILY RAMIREZ Levothyroxine Sodium (Levothyroxine 50 Mcg Tablet) 50 mcg PO 0600 RAMIREZ Naloxone HCl (Naloxone 0.4 Mg/Ml Vial) 0.2 mg IV Q2MIN PRN PRN Reason: Opiate Reversal Thyroid (Thyroid, Pork 30 Mg Tablet) 30 mg PO DAILY RAMIREZ Reevaluation(s) Reevaluation #1: Patient reports stable symptoms since arrival. Discussed negative workup thus far and review of medical records from [facility]. At this point I am recommending she be admitted for MRI probably repeat echocardiogram further stroke workup. I am planning to contact stroke Neurology. Consultations Consultation #1: Discussed with stroke Neurology at [facility] Dr. García. She does not recommend changing medications at this point agrees with the plan to repeat imaging and recommends we add MRI of the cervical spine to exclude cervical lesion Consultation #2: At 3:00 p.m., case is discussed with hospitalist, Dr. Welsh who accepts admission Vital Signs Vital signs: Vital Signs - 8 hr 01/24/25 11:06 01/24/25 11:09 01/24/25 11:10 Temperature 98.7 F Pulse Rate 79 79 80 Respiratory Rate 16 Blood Pressure 141/64 H Pulse Oximetry 100 97 99 Oxygen Delivery Method Room Air 01/24/25 11:10 01/24/25 11:30 01/24/25 11:31 Temperature Pulse Rate 72 68 Respiratory Rate 22 23 Blood Pressure 175/70 H Pulse Oximetry 98 100 Oxygen Delivery Method Room Air 01/24/25 11:31 01/24/25 12:04 01/24/25 12:05 Temperature Pulse Rate 73 72 Respiratory Rate 16 Blood Pressure 142/63 H Pulse Oximetry 98 98 Oxygen Delivery Method Room Air 01/24/25 12:05 01/24/25 12:15 01/24/25 12:15 Temperature Pulse Rate 67 Respiratory Rate Blood Pressure 143/63 H 135/65 Pulse Oximetry 100 Oxygen Delivery Method 01/24/25 12:30 01/24/25 12:30 01/24/25 12:45 Temperature Pulse Rate 67 68 Respiratory Rate 18 21 Blood Pressure 124/59 L Pulse Oximetry 99 99 Oxygen Delivery Method Room Air 01/24/25 12:45 01/24/25 13:00 01/24/25 13:00 Temperature Pulse Rate 68 Respiratory Rate Blood Pressure 120/58 L 111/56 L Pulse Oximetry 99 Oxygen Delivery Method 01/24/25 13:15 01/24/25 13:15 01/24/25 13:30 Temperature Pulse Rate 66 Respiratory Rate Blood Pressure 106/52 L 108/54 L Pulse Oximetry 99 Oxygen Delivery Method 01/24/25 13:30 01/24/25 13:54 01/24/25 13:54 Temperature Pulse Rate 67 70 Respiratory Rate 23 17 Blood Pressure 133/59 L Pulse Oximetry 99 100 Oxygen Delivery Method Room Air 01/24/25 14:00 01/24/25 14:00 01/24/25 14:15 Temperature Pulse Rate 69 Respiratory Rate 18 Blood Pressure 129/59 L 122/59 L Pulse Oximetry 99 Oxygen Delivery Method 01/24/25 14:15 01/24/25 14:30 01/24/25 14:31 Temperature Pulse Rate 66 68 67 Respiratory Rate 16 14 12 Blood Pressure Pulse Oximetry 100 100 100 Oxygen Delivery Method 01/24/25 14:31 01/24/25 14:46 01/24/25 14:46 Temperature Pulse Rate 69 Respiratory Rate 14 Blood Pressure 122/63 114/58 L Pulse Oximetry 99 Oxygen Delivery Method 01/24/25 15:00 01/24/25 15:01 01/24/25 15:01 Temperature Pulse Rate 66 66 Respiratory Rate 22 20 Blood Pressure 99/48 L Pulse Oximetry 99 99 Oxygen Delivery Method 01/24/25 15:03 01/24/25 15:03 Temperature Pulse Rate 74 Respiratory Rate 28 H Blood Pressure 106/58 L Pulse Oximetry 92 Oxygen Delivery Method MDM - Neuro Symptoms/Deficit Medical Records Medical records narrative: I was able to obtain records from [facility]. Those records are reviewed, report a past medical history of lupus and Sjogren's syndrome as well as hypertension presented to [facility] in August of this year with difficulty walking dysarthria and left-sided numbness. Her symptoms were described as mostly resolved although some persistent gait instability. Had a normal ESR and CRP normal MRI and echocardiogram was described as technically difficult but no embolic source with the identified. She was discharged on aspirin and a statin. Lab Data 01/24/25 11:23 01/24/25 11:23 Labs: Lab Results 01/24/25 01/24/25 01/24/25 Range/Units 11:06 11:23 11:33 WBC 4.6 (4.5-11.0) X10^3/uL RBC 4.65 (4.0-5.2) X10^6/uL Hgb 13.6 (12.0-16.0) g/dL Hct 38.0 (36-46) % MCV 81.8 (80-100) fL MCH 29.2 (26-34) PG MCHC 35.7 (30-36) % RDW 13.1 (11.6-14.8) % Plt Count 170 (150-400) X10^3/uL Neut % (Auto) 65.2 (50-75) % Lymph % (Auto) 22.3 L (25-40) % [place] % (Auto) 8.9 (3-14) % Eos % (Auto) 3.0 (2-4) % Baso % (Auto) 0.6 (0-2) % Neut # (Auto) 3000 (5586-2614) /uL Lymph # (Auto) 1000 L (9697-7377) /uL [place] # (Auto) 400 (0-900) /uL Eos # (Auto) 100 (0-450) /uL Baso # (Auto) 0 (0-100) /uL PT 12.4 (9.4-12.5) SECONDS INR 1.1 (0.9-1.3) APTT 29 (25.1-36.5) SECONDS Sodium 133 L (137-145) mmol/L Potassium 3.7 (3.4-5.1) mmol/L Chloride 98 (98-107) mmol/L Carbon Dioxide 25 (22-32) mmol/L BUN 14 (7-17) mg/dL Creatinine 0.85 (0.52-1.04) mg/dL Estimated GFR > 60 (>60) mL/min BUN/Creatinine Ratio 16.5 (6-22) Glucose 98 (70-99) mg/dL POC Whole Bld Glucose 89 (70-99) mg/dL Calcium 9.4 (8.4-10.2) mg/dL Total Bilirubin 1.4 H (0.2-1.3) mg/dL AST 41 H (14-36) IU/L ALT 47 H (<35) IU/L Alkaline Phosphatase 87 (38-126) U/L Total Creatine Kinase 86 (30-135) U/L Troponin I < 0.012 (0.01-0.034) ng/mL Total Protein 6.9 (6.3-8.2) g/dL Albumin 4.4 (3.5-5.0) g/dL Globulin 2.5 (1.7-4.1) g/dL Albumin/Globulin Ratio 1.8 (1.0-2.8) Urine Color Urine Appearance Urine pH (4.5-8.0) Ur Specific Sherman (1.000-1.035) Urine Protein (Negative) Urine Glucose (UA) (Negative) g/dL Urine Ketones (NEGATIVE) Urine Occult Blood (Negative) Urine Nitrate (Negative) Urine Bilirubin (NEGATIVE) Urine Urobilinogen (0.2) E.U./dL Ur Leukocyte Esterase (NEGATIVE) Urine RBC (0-5/HPF) Urine WBC (0-5/HPF) Ur Squamous Epith Cells (0-5/HPF) Urine Bacteria (None) Ur Culture Indicated? Vol Urine Centrifuged U Opiates 300ng/mL cut (Negative) Ur Oxycodone Screen (Negative) Urine Methadone Screen (Negative) Ur Barbiturates Screen (Negative) U Tricyclic Antidepress (Negative) Ur Phencyclidine Scrn (Negative) Ur Amphetamines Screen (Negative) U Methamphetamines Scrn (Negative) Ur MDMA Scrn (Ecstasy) (Negative) U Benzodiazepines Scrn (Negative) Urine Cocaine Screen (Negative) U Marijuana (THC) Screen (Negative) Urine Specific Sherman (Normal) Ethyl Alcohol < 10 (<10) mg/dL Ur Creatinine (Normal) SARS-CoV-2 (PCR) Negative (Negative) 01/24/25 01/24/25 01/24/25 Range/Units 12:07 12:07 12:31 WBC (4.5-11.0) X10^3/uL RBC (4.0-5.2) X10^6/uL Hgb (12.0-16.0) g/dL Hct (36-46) % MCV (80-100) fL MCH (26-34) PG MCHC (30-36) % RDW (11.6-14.8) % Plt Count (150-400) X10^3/uL Neut % (Auto) (50-75) % Lymph % (Auto) (25-40) % [place] % (Auto) (3-14) % Eos % (Auto) (2-4) % Baso % (Auto) (0-2) % Neut # (Auto) (2764-1217) /uL Lymph # (Auto) (4108-9020) /uL [place] # (Auto) (0-900) /uL Eos # (Auto) (0-450) /uL Baso # (Auto) (0-100) /uL PT (9.4-12.5) SECONDS INR (0.9-1.3) APTT (25.1-36.5) SECONDS Sodium (137-145) mmol/L Potassium (3.4-5.1) mmol/L Chloride (98-107) mmol/L Carbon Dioxide (22-32) mmol/L BUN (7-17) mg/dL Creatinine (0.52-1.04) mg/dL Estimated GFR (>60) mL/min BUN/Creatinine Ratio (6-22) Glucose (70-99) mg/dL POC Whole Bld Glucose 77 (70-99) mg/dL Calcium (8.4-10.2) mg/dL Total Bilirubin (0.2-1.3) mg/dL AST (14-36) IU/L ALT (<35) IU/L Alkaline Phosphatase (38-126) U/L Total Creatine Kinase (30-135) U/L Troponin I (0.01-0.034) ng/mL Total Protein (6.3-8.2) g/dL Albumin (3.5-5.0) g/dL Globulin (1.7-4.1) g/dL Albumin/Globulin Ratio (1.0-2.8) Urine Color Yellow Urine Appearance Clear Urine pH 7.0 Normal (4.5-8.0) Ur Specific Sherman <=1.005 (1.000-1.035) Urine Protein Negative (Negative) Urine Glucose (UA) Negative (Negative) g/dL Urine Ketones Negative (NEGATIVE) Urine Occult Blood Negative (Negative) Urine Nitrate Negative (Negative) Urine Bilirubin Negative (NEGATIVE) Urine Urobilinogen 0.2 (0.2) E.U./dL Ur Leukocyte Esterase Negative (NEGATIVE) Urine RBC 0-1/hpf (0-5/HPF) Urine WBC 0-1/hpf (0-5/HPF) Ur Squamous Epith Cells 0-1 /hpf (0-5/HPF) Urine Bacteria Occasional (0-1) (None) Ur Culture Indicated? Cult not indicated Vol Urine Centrifuged 10ml (spun) U Opiates 300ng/mL cut Negative (Negative) Ur Oxycodone Screen Negative (Negative) Urine Methadone Screen Negative (Negative) Ur Barbiturates Screen Negative (Negative) U Tricyclic Antidepress Negative (Negative) Ur Phencyclidine Scrn Negative (Negative) Ur Amphetamines Screen Negative (Negative) U Methamphetamines Scrn Negative (Negative) Ur MDMA Scrn (Ecstasy) Negative (Negative) U Benzodiazepines Scrn Negative (Negative) Urine Cocaine Screen Negative (Negative) U Marijuana (THC) Screen Negative (Negative) Urine Specific [place] Normal (Normal) Ethyl Alcohol (<10) mg/dL Ur Creatinine Normal (Normal) SARS-CoV-2 (PCR) (Negative) 01/24/25 Range/Units 13:56 WBC (4.5-11.0) X10^3/uL RBC (4.0-5.2) X10^6/uL Hgb (12.0-16.0) g/dL Hct (36-46) % MCV (80-100) fL MCH (26-34) PG MCHC (30-36) % RDW (11.6-14.8) % Plt Count (150-400) X10^3/uL Neut % (Auto) (50-75) % Lymph % (Auto) (25-40) % [place] % (Auto) (3-14) % Eos % (Auto) (2-4) % Baso % (Auto) (0-2) % Neut # (Auto) (4678-7638) /uL Lymph # (Auto) (2162-1948) /uL [place] # (Auto) (0-900) /uL Eos # (Auto) (0-450) /uL Baso # (Auto) (0-100) /uL PT (9.4-12.5) SECONDS INR (0.9-1.3) APTT (25.1-36.5) SECONDS Sodium (137-145) mmol/L Potassium (3.4-5.1) mmol/L Chloride (98-107) mmol/L Carbon Dioxide (22-32) mmol/L BUN (7-17) mg/dL Creatinine (0.52-1.04) mg/dL Estimated GFR (>60) mL/min BUN/Creatinine Ratio (6-22) Glucose (70-99) mg/dL POC Whole Bld Glucose 84 (70-99) mg/dL Calcium (8.4-10.2) mg/dL Total Bilirubin (0.2-1.3) mg/dL AST (14-36) IU/L ALT (<35) IU/L Alkaline Phosphatase (38-126) U/L Total Creatine Kinase (30-135) U/L Troponin I (0.01-0.034) ng/mL Total Protein (6.3-8.2) g/dL Albumin (3.5-5.0) g/dL Globulin (1.7-4.1) g/dL Albumin/Globulin Ratio (1.0-2.8) Urine Color Urine Appearance Urine pH (4.5-8.0) Ur Specific Sherman (1.000-1.035) Urine Protein (Negative) Urine Glucose (UA) (Negative) g/dL Urine Ketones (NEGATIVE) Urine Occult Blood (Negative) Urine Nitrate (Negative) Urine Bilirubin (NEGATIVE) Urine Urobilinogen (0.2) E.U./dL Ur Leukocyte Esterase (NEGATIVE) Urine RBC (0-5/HPF) Urine WBC (0-5/HPF) Ur Squamous Epith Cells (0-5/HPF) Urine Bacteria (None) Ur Culture Indicated? Vol Urine Centrifuged U Opiates 300ng/mL cut (Negative) Ur Oxycodone Screen (Negative) Urine Methadone Screen (Negative) Ur Barbiturates Screen (Negative) U Tricyclic Antidepress (Negative) Ur Phencyclidine Scrn (Negative) Ur Amphetamines Screen (Negative) U Methamphetamines Scrn (Negative) Ur MDMA Scrn (Ecstasy) (Negative) U Benzodiazepines Scrn (Negative) Urine Cocaine Screen (Negative) U Marijuana (THC) Screen (Negative) Urine Specific [place] (Normal) Ethyl Alcohol (<10) mg/dL Ur Creatinine (Normal) SARS-CoV-2 (PCR) (Negative) Point of Care Testing Glucose POC [address] scan - head: My Impression: Independently reviewed CT head, no acute findings Radiologist's Impression: [place] [address] CT Scan Report Signed Patient: Anca Abdullahi MR#: [id number] : 1965 Acct:[id number] Age/Sex: 60 / F Date of Service: 01/24/25 Loc: ED Accession Number: [id number] Procedure: CT head/brain wo con Ordering Provider: Joe Hernandez MD PROCEDURE: CT HEAD/BRAIN WO CON INDICATIONS: neuro deficit TECHNIQUE: Noncontrast 4.5 mm thick angled axial sections acquired from the foramen magnum to the vertex, with coronal and sagittal reformats. For radiation dose reduction, the following was used: automated exposure control, adjustment of mA and/or kV according to patient size. COMPARISON: None. FINDINGS: Image quality: Diagnostic. CSF spaces: Basal cisterns are patent. No extra-axial fluid collections. Ventricles are normal in size and shape. Brain: No midline shift. No intracranial mass effect or hemorrhage. Anne-white matter interface is normal. Skull and face: Calvarium and visualized facial bones are intact, without suspicious lesions. Sinuses: Visualized sinuses and mastoids are clear. IMPRESSION: No acute intracranial pathology. Approved by: Jin Byrd M.D. on 01/24/2025 at 11:59 CTA - brain/neck: Radiologist's Impression: [place] [address] CT Scan Report Signed Patient: Anca Abdullahi MR#: [id number] : 1965 Acct:[id number] Age/Sex: 60 / F Date of Service: 01/24/25 Loc: ED Accession Number: [id number] Procedure: CT angio head and neck Ordering Provider: Joe Hernandez MD PROCEDURE: CT ANGIO HEAD AND NECK INDICATIONS: neuro deficit TECHNIQUE: After the administration of intravenous contrast, 1 mm thick sections acquired from the aortic arch through the [place] of [place]. 3-dimensional khygalx-yispklhil-vyncfnqdkv (MIP) and/or volume rendering reformats were acquired of the central intracranial vasculature and neck separately. For radiation dose reduction, the following was used: automated exposure control, adjustment of mA and/or kV according to patient size. COMPARISON: None. FINDINGS: Image quality: Diagnostic. Cerebral CT Angiogram: Internal carotid arteries: No acute findings. Intracranial ICA are patent with no significant stenosis. No occlusion. No aneurysm. Anterior cerebral arteries: Unremarkable. No significant stenosis. No occlusion. No aneurysm. Middle cerebral arteries: Unremarkable. No significant stenosis. No occlusion. No aneurysm. Posterior cerebral arteries: Unremarkable. No significant stenosis. No occlusion. No aneurysm. Basilar artery: Unremarkable. No significant stenosis. No occlusion. No aneurysm. Vertebral arteries: Unremarkable as visualized. Dural venous sinuses: Unremarkable given phase of enhancement. Other: Arterial phase appearance of the brain parenchyma is unremarkable. Neck CT Angiogram: Internal carotid arteries: Unremarkable. No significant stenosis. No dissection or occlusion. Common carotid arteries: Unremarkable. No significant stenosis. No dissection or occlusion. External carotid arteries: Unremarkable. No occlusion. Vertebral arteries: Unremarkable. No significant stenosis. No dissection or occlusion. Aortic Arch and Mediastinum: Partially visualized aortic arch unremarkable without evidence of aneurysm. Origins of the great vessels unremarkable. Other: Right thyroid 1.9 cm nodule.. IMPRESSION: No significant intracranial arterial abnormality is seen. No significant abnormality is seen within the arteries of the neck. Indeterminate right thyroid nodule. Recommend follow-up outpatient thyroid ultrasound for further evaluation. Any quantitative measurements of stenosis were performed using NASCET criteria. Approved by: Jin Byrd M.D. on 01/24/2025 at 12:04 ECG Data Attestation: I personally reviewed and interpreted this ECG as follows: Interpretation: Normal sinus rhythm at [address] segment changes no previous infarction MDM Narrative Medical decision making narrative: 60-year-old female with a history of TIA presenting with left-sided weakness decreased sensation and ataxia. History is a little unusual in that the patient reports it is many of her symptoms have been present since August when she was seen with what was thought to be a TIA. She has a headache but without explosive onset, CT is negative for stroke either old or new or hemorrhage. CT angiogram is also negative. Is after discussion with stroke Neurology, patient will be admitted to the hospitalist service for further workup and likely MRI of both brain and spinal cord and probable echo. Stroke neurologist did not recommend any alteration in the patient's medication at this point. Discharge Plan Departure Prescriptions: No Action progesterone micronized 100 MG capsule 100 mg PO HS Qty: 90 1RF hydroxychloroquine [Plaquenil] 200 mg tablet Qty: 0 epinephrine 0.3 MG/0.3 ML auto-injector 0.3 mg IJ SEE INSTRUCTIONS Qty: 2 1RF levalbuterol tartrate [Xopenex HFA] 45 MCG/INH HFA aerosol inhaler 2 puff INH Q6HP PRNQty: 15 0RF thyroid (pork) [Nature-Throid] 32.5 MG tablet 32.5 mg PO QAM Qty: 90 0RF levothyroxine [Synthroid] 50 MCG tablet 50 mcg PO QAM Qty: 90 0RF bupropion HCl 150 mg tablet extended release 24 hr 150 mg PO QAM Rx Instructions: Take 1 tablet (150 mg) by mouth daily. REFILLS 5 hydroxychloroquine 200 mg tablet 400 mg PO DAILY Rx Instructions: Take 400 mg by mouth daily. Referrals: Bobby Nolan MD [Primary Care Provider, Family Practice]
[2025-01-24 11:54] LABS: Troponin I < 0.012 ng/mL (0.01-0.034)
[2025-01-24 11:58] LABS: COVID19 -Nasal RAPID Negative (Negative)
[2025-01-24 12:18] LABS: Appearance Urine UA CLEAR; Bilirubin Urine UA NEGATIVE (NEGATIVE); Color Urine UA YELLOW; Glucose Urine UA NEGATIVE (Negative); Ketones Urine UA NEGATIVE (NEGATIVE); Leukocyte Esterase Urine UA NEGATIVE (NEGATIVE); Nitrite Urine UA NEGATIVE (Negative); Occult Blood Urine UA NEGATIVE (Negative); Protein Urine UA NEGATIVE (Negative); Specific Gravity Urine UA <=1.005 (1.000-1.035); Urobilinogen Urine UA 0.2 E.U./dL (0.2)
[2025-01-24 12:19] LABS: pH Urine UA 7.0 (4.5-8.0)
[2025-01-24 12:20] LABS: UR Morphine/Opiate cutoff 300 Negative (Negative); Ur Specific Gravity Normal (Normal); Urine MDMA Negative (Negative); Urine Methamphetamines Negative (Negative); Urine Tetrahydrocannabinol Negative (Negative); Urine Tricyclic Antidepressant Negative (Negative)
[2025-01-24 12:25] LABS: Culture Indicated Urine Cult Not Indicated
--- NOTE | 2025-01-24 15:09 | PM.HP.1 ---
History of Present Illness History of Present Illness Date Patient Seen: 01/24/25 Time Patient Seen: 15:09 Chief complaint: Code stroke-LKW 01/23/25 2200,ataxia,blurred vision Narrative: This is a 60-year-old female with a history of lupus, Sjogren's disease, hypothyroidism, TIA, GHASSAN, hypertension, venous insufficiency, migraine headaches, osteoarthritis and propofol reaction who presents with a neurological conundrum. Two days ago she experienced a very stressful episode driving a longer distance than usual. The following day, yesterday, she was fatigued all day long and experienced a headache. She had episodes of mumbling, stumbling, difficulty controlling her left leg, chest pain. She was nauseated. Her blood pressure was 179/58, her speech was slurred and she was using incorrect words in sentences. She had a similar episode in August of 2024 and was transported by air to [facility] where she was evaluated and diagnosed with a TIA. She has perceived her left side to be weaker since then. This is an intermittent symptom as is the verbal confusion. She has no other migraine symptoms such as visual aura or scotoma. She has been told after prior brain MRIs that she has classic migraine changes on imaging. On my interaction/examination in the ED she has no left-sided weakness and her speech is very clear along with her well above average mental processing and verbalization. She has a history of lupus and Sjogren's. Neurology stroke was consulted and recommended in addition to this negative CTA and CT head that she undergo repeat echocardiogram and MRIs of the brain and C-spine. She actually has an outpatient neurology appointment to workup this condition coming up in 3 more days in [place]. [facility] Medical History (Updated 01/24/25 @ 17:11 by Flex Welsh MD) Schatzki's ring Venous insufficiency Obstructive sleep apnea, adult Adverse effect of propofol Migraine Osteoarthritis HTN (hypertension) Lupus Sjogren's disease Hypothyroidism TIA (transient ischemic attack) UTI (urinary tract infection) Surgical History (Updated 01/24/25 @ 17:11 by Flex Welsh MD) H/O radiofrequency ablation (RFA) of nerve of lumbar spine H/O: History of hysterectomy, supracervical S/P appendectomy S/P cholecystectomy Family History (Updated 01/24/25 @ 17:12 by Flex Welsh MD) Mother Aortic stenosis Lymphoma Hypothyroidism Father Hypertension Hypothyroidism Hyperlipidemia Social History (Updated 01/24/25 @ 17:13 by Flex Welsh MD) marital status: Meds Home Medications and Allergies Home Medications ?Medication ?Instructions ?Recorded ?Confirmed ?Type progesterone micronized 100 mg 100 mg PO HS #90 caps 02/19/16 10/02/20 Rx capsule hydroxychloroquine 200 mg tablet ##0 07/08/16 10/02/20 History (Plaquenil) epinephrine 0.3 mg/0.3 mL 0.3 mg (0.3 mL) IJ SEE 10/28/16 10/02/20 Rx injection, auto-injector INSTRUCTIONS ##2 levalbuterol tartrate 45 2 puff INH Q6HP PRN ##15 10/28/16 10/02/20 Rx mcg/actuation aerosol inhaler (Xopenex HFA) levothyroxine 50 mcg tablet 50 mcg PO QAM #90 tabs 12/15/16 10/02/20 Rx (Synthroid) thyroid (pork) 32.5 mg tablet 32.5 mg PO QAM #90 tabs 12/15/16 10/02/20 Rx (Nature-Throid) bupropion HCl 150 mg 24 hr tablet, 150 mg PO QAM 01/24/22 01/24/22 History extended release hydroxychloroquine 200 mg tablet 400 mg PO DAILY 01/24/22 01/24/22 History Allergies Allergy/AdvReac Type Severity Reaction Status Date / Time cephalexin (CEPHALEXIN) Allergy Intermediate Verified 01/13/21 14:31 nitrofurantoin (From Allergy Intermediate tongue Verified 01/13/21 14:31 Macrobid) swelling Penicillins (PENICILLINS) Allergy Intermediate Verified 01/13/21 14:31 Sulfa (Sulfonamide Allergy Intermediate Verified 01/13/21 14:31 Antibiotics) (SULFA (SULFONAMIDE ANTIBIOTICS)) codeine (CODEINE) Allergy Mild Verified 01/13/21 14:31 crab (CRAB) AdvReac Severe anaphylacti Verified 01/13/21 14:31 c propofol AdvReac Severe bronchospas Verified 01/24/25 17:26 m doxycycline AdvReac Intermediate vomitting Verified 01/13/21 14:31 Review of Systems Review of Systems Narrative: Positive for anxiety, fatigue stumbling, slurred speech, headache, chest pain, nausea, left-sided weakness. Negative for fevers, chills, sweats, coughing, abdominal pain, vomiting, diarrhea, bleeding, new rash, new allergies. Exam Vital Signs (past 8 hours): - 01/24/25 11:06 01/24/25 11:09 01/24/25 11:10 Temperature 98.7 F Pulse Rate 79 79 80 Respiratory Rate 16 Blood Pressure 141/64 H Pulse Oximetry 100 97 99 Oxygen Delivery Method Room Air 01/24/25 11:10 01/24/25 11:30 01/24/25 11:31 Temperature Pulse Rate 72 68 Respiratory Rate 22 23 Blood Pressure 175/70 H Pulse Oximetry 98 100 Oxygen Delivery Method Room Air 01/24/25 11:31 01/24/25 12:04 01/24/25 12:05 Temperature Pulse Rate 73 72 Respiratory Rate 16 Blood Pressure 142/63 H Pulse Oximetry 98 98 Oxygen Delivery Method Room Air 01/24/25 12:05 01/24/25 12:15 01/24/25 12:15 Temperature Pulse Rate 67 Respiratory Rate Blood Pressure 143/63 H 135/65 Pulse Oximetry 100 Oxygen Delivery Method 01/24/25 12:30 01/24/25 12:30 01/24/25 12:45 Temperature Pulse Rate 67 68 Respiratory Rate 18 21 Blood Pressure 124/59 L Pulse Oximetry 99 99 Oxygen Delivery Method Room Air 01/24/25 12:45 01/24/25 13:00 01/24/25 13:00 Temperature Pulse Rate 68 Respiratory Rate Blood Pressure 120/58 L 111/56 L Pulse Oximetry 99 Oxygen Delivery Method 01/24/25 13:15 01/24/25 13:15 01/24/25 13:30 Temperature Pulse Rate 66 Respiratory Rate Blood Pressure 106/52 L 108/54 L Pulse Oximetry 99 Oxygen Delivery Method 01/24/25 13:30 01/24/25 13:54 01/24/25 13:54 Temperature Pulse Rate 67 70 Respiratory Rate 23 17 Blood Pressure 133/59 L Pulse Oximetry 99 100 Oxygen Delivery Method Room Air 01/24/25 14:00 01/24/25 14:00 01/24/25 14:15 Temperature Pulse Rate 69 Respiratory Rate 18 Blood Pressure 129/59 L 122/59 L Pulse Oximetry 99 Oxygen Delivery Method 01/24/25 14:15 01/24/25 14:30 01/24/25 14:31 Temperature Pulse Rate 66 68 67 Respiratory Rate 16 14 12 Blood Pressure Pulse Oximetry 100 100 100 Oxygen Delivery Method 01/24/25 14:31 01/24/25 14:46 01/24/25 14:46 Temperature Pulse Rate 69 Respiratory Rate 14 Blood Pressure 122/63 114/58 L Pulse Oximetry 99 Oxygen Delivery Method Oxygen Delivery Method Room Air Narrative Exam Narrative: Alert and oriented x3. No apparent distress. No signs of headache or anxiety. Pupils are equally round and reactive to light and accommodation. Extraocular muscles are intact. Sclerae are pink and nonicteric. No lymph nodes are felt head, neck, supraclavicular area. There is no thyromegaly. JVD is less than 6 cm. There is no carotid bruits heard. Heart is regular rate and rhythm without murmur. Lungs are clear to auscultation bilaterally. Breast exam is not done. Abdomen is soft, nontender, no organomegaly, bowel sounds positive. There is no ankle edema. Cranial nerves 2-12 test intact. Motor function is 5/5 throughout. Speech is normal without word salad, inaccurate word choices or memory loss of directed conversation. There is no tremor. Rapid alternating movement is normal. Cerebellar testing is normal. Babinski's are downgoing bilaterally. Reflexes are normal. Objective Labs 01/24/25 11:23 01/24/25 11:23 Labs: Laboratory Results - last 24 hr 01/24/25 01/24/25 01/24/25 11:06 11:23 11:33 WBC 4.6 RBC 4.65 Hgb 13.6 Hct 38.0 MCV 81.8 MCH 29.2 MCHC 35.7 RDW 13.1 Plt Count 170 Neut % (Auto) 65.2 Lymph % (Auto) 22.3 L Hubbard % (Auto) 8.9 Eos % (Auto) 3.0 Baso % (Auto) 0.6 Neut # (Auto) 3000 Lymph # (Auto) 1000 L Hubbard # (Auto) 400 Eos # (Auto) 100 Baso # (Auto) 0 PT 12.4 INR 1.1 APTT 29 Sodium 133 L Potassium 3.7 Chloride 98 Carbon Dioxide 25 BUN 14 Creatinine 0.85 Estimated GFR > 60 BUN/Creatinine Ratio 16.5 Glucose 98 POC Whole Bld Glucose 89 Calcium 9.4 Total Bilirubin 1.4 H AST 41 H ALT 47 H Alkaline Phosphatase 87 Total Creatine Kinase 86 Troponin I < 0.012 Total Protein 6.9 Albumin 4.4 Globulin 2.5 Albumin/Globulin Ratio 1.8 Urine Color Urine Appearance Urine pH Ur Specific [place] Urine Protein Urine Glucose (UA) Urine Ketones Urine Occult Blood Urine Nitrate Urine Bilirubin Urine Urobilinogen Ur Leukocyte Esterase Urine RBC Urine WBC Ur Squamous Epith Cells Urine Bacteria Ur Culture Indicated? Vol Urine Centrifuged U Opiates 300ng/mL cut Ur Oxycodone Screen Urine Methadone Screen Ur Barbiturates Screen U Tricyclic Antidepress Ur Phencyclidine Scrn Ur Amphetamines Screen U Methamphetamines Scrn Ur MDMA Scrn (Ecstasy) U Benzodiazepines Scrn Urine Cocaine Screen U Marijuana (THC) Screen Urine Specific [place] Ethyl Alcohol < 10 Ur Creatinine SARS-CoV-2 (PCR) Negative 01/24/25 01/24/25 01/24/25 12:07 12:07 12:31 WBC RBC Hgb Hct MCV MCH MCHC RDW Plt Count Neut % (Auto) Lymph % (Auto) Hubbard % (Auto) Eos % (Auto) Baso % (Auto) Neut # (Auto) Lymph # (Auto) Hubbard # (Auto) Eos # (Auto) Baso # (Auto) PT INR APTT Sodium Potassium Chloride Carbon Dioxide BUN Creatinine Estimated GFR BUN/Creatinine Ratio Glucose POC Whole Bld Glucose 77 Calcium Total Bilirubin AST ALT Alkaline Phosphatase Total Creatine Kinase Troponin I Total Protein Albumin Globulin Albumin/Globulin Ratio Urine Color Yellow Urine Appearance Clear Urine pH 7.0 Normal Ur Specific [place] <=1.005 Urine Protein Negative Urine Glucose (UA) Negative Urine Ketones Negative Urine Occult Blood Negative Urine Nitrate Negative Urine Bilirubin Negative Urine Urobilinogen 0.2 Ur Leukocyte Esterase Negative Urine RBC 0-1/hpf Urine WBC 0-1/hpf Ur Squamous Epith Cells 0-1 /hpf Urine Bacteria Occasional (0-1) Ur Culture Indicated? Cult not indicated Vol Urine Centrifuged 10ml (spun) U Opiates 300ng/mL cut Negative Ur Oxycodone Screen Negative Urine Methadone Screen Negative Ur Barbiturates Screen Negative U Tricyclic Antidepress Negative Ur Phencyclidine Scrn Negative Ur Amphetamines Screen Negative U Methamphetamines Scrn Negative Ur MDMA Scrn (Ecstasy) Negative U Benzodiazepines Scrn Negative Urine Cocaine Screen Negative U Marijuana (THC) Screen Negative Urine Specific [place] Normal Ethyl Alcohol Ur Creatinine Normal SARS-CoV-2 (PCR) 01/24/25 13:56 WBC RBC Hgb Hct MCV MCH MCHC RDW Plt Count Neut % (Auto) Lymph % (Auto) Hubbard % (Auto) Eos % (Auto) Baso % (Auto) Neut # (Auto) Lymph # (Auto) Hubbard # (Auto) Eos # (Auto) Baso # (Auto) PT INR APTT Sodium Potassium Chloride Carbon Dioxide BUN Creatinine Estimated GFR BUN/Creatinine Ratio Glucose POC Whole Bld Glucose 84 Calcium Total Bilirubin AST ALT Alkaline Phosphatase Total Creatine Kinase Troponin I Total Protein Albumin Globulin Albumin/Globulin Ratio Urine Color Urine Appearance Urine pH Ur Specific [place] Urine Protein Urine Glucose (UA) Urine Ketones Urine Occult Blood Urine Nitrate Urine Bilirubin Urine Urobilinogen Ur Leukocyte Esterase Urine RBC Urine WBC Ur Squamous Epith Cells Urine Bacteria Ur Culture Indicated? Vol Urine Centrifuged U Opiates 300ng/mL cut Ur Oxycodone Screen Urine Methadone Screen Ur Barbiturates Screen U Tricyclic Antidepress Ur Phencyclidine Scrn Ur Amphetamines Screen U Methamphetamines Scrn Ur MDMA Scrn (Ecstasy) U Benzodiazepines Scrn Urine Cocaine Screen U Marijuana (THC) Screen Urine Specific [place] Ethyl Alcohol Ur Creatinine SARS-CoV-2 (PCR) Assessment & Plan Assessment & Plan narrative: This is a 60-year-old female with a history of lupus, Sjogren's disease, hypothyroidism, TIA, GHASSAN, hypertension, venous insufficiency, migraine headaches, osteoarthritis and propofol reaction who presents with a neurological conundrum. Left-sided weakness with nausea/headache/slurred speech, present on admission. Active. -her description of current left-sided weakness is not objectively present on exam but it appears that her symptoms are somewhat intermittent. -per neurology [facility] recommendations we will proceed with brain MRI and cervical spine MRI on 01/25. -monitor on telemetry. Echocardiogram. -CTA head and neck along with CT head negative. -history of migraines and symptoms including anxiety/fatigue/headaches/nausea suggest a reasonable chance of her presentation being migraine related. If her symptoms recur while in the hospital we will trial her on Imitrex. -after a long wait to get a Neurology outpatient appointment she has 1 coming up in 3 days in [place]. -history of lupus and Sjogren suggest a possible autoimmune inflammatory condition. Check ESR and CRP. Lumbar spine degenerative disc disease, present on admission. Chronic. -patient has had radiofrequency ablation and follows up with orthopedics. -this could be the cause of or contributing to her intermittent left-sided weakness. Hyponatremia, present on admission. Active. -sodium 133 on admission, repeat on 01/25 Lupus/Sjogren's disease, present on admission. Chronic. -check ESR and CRP -continue hydroxychloroquine Anxiety, present on admission. Chronic. -continue Wellbutrin Hypothyroidism, present on admission. Chronic. -continue Madeline thyroid and levothyroxine. DVT prevention with Lovenox Backup decision maker is her Time-Based Coding :: [TOTAL MINUTES] spent with patient and on the chart (including review of chart, obtaining history, exam, reviewing outside data, placing orders, documenting exam and treatment plan, and counseling patient) on [DATE].
[2025-01-24] MEDS: HYDROXYCHLOROQUINE 200 MG TABLET 400 MG PO (21:21)
[2025-01-24] MEDS: SIMETHICONE 80 MG TABLET PO (21:21)
[2025-01-24] MEDS: ONDANSETRON 4 MG/2 ML INJ IV (21:21)
--- NOTE | 2025-01-25 | DI.MRI.S_ITS ---
PROCEDURE: MR CERVICAL SPINE WO CON INDICATIONS: Left Leg weakness TECHNIQUE: Noncontrast sagittal T1 spin echo and T2 fast spin echo, sagittal STIR, foraminal oblique sagittal T2 fast spin echo, and axial gradient echo or T2 fast spin echo through the cervical spine. COMPARISON: None. FINDINGS: Image quality: Excellent. Alignment and Curvature: Mild reversal the normal cervical lordosis is present. There is otherwise normal bony alignment. Bone Marrow: Marrow demonstrates normal overall signal. Spinal Cord: Visualized spinal cord has normal size and signal. No cerebellar tonsillar herniation. Paraspinous Soft Tissues: No paravertebral masses. Prevertebral soft tissues are normal in thickness. C2-C3: Normal appearance. C3-C4: Normal appearance. C4-C5: There is a minimal disc bulge which causes no significant neural foraminal or spinal canal narrowing. C5-C6: There is a posterior central disc protrusion which abuts the ventral thecal sac without causing significant neural foraminal or spinal canal narrowing. C6-C7: There is a posterior central disc extrusion which abuts the ventral thecal sac and contributes to mild spinal canal narrowing with mild right neural foraminal narrowing. C7-T1: Normal appearance. IMPRESSION: Mild degenerative disc disease without associated cord abnormality. Dictated by: Ava Howe M.D. on 01/25/2025 at 13:20 Approved by: Ava Howe M.D. on 01/25/2025 at 13:24
--- NOTE | 2025-01-25 | DI.MRI.S_ITS ---
PROCEDURE: MR HEAD/BRAIN WO CON INDICATIONS: TIA TECHNIQUE: Non-contrast axial T1 spin echo, axial T2 fast spin echo, sagittal and axial FLAIR, coronal T2 fast spin echo, axial gradient echo, axial diffusion and ADC through the brain. COMPARISON: None. FINDINGS: Image quality: Excellent. CSF spaces: Ventricles appear symmetric in size and shape. Basal cisterns are patent. No extra-axial fluid collections. Brain: No intracranial bleeds or mass effects. There is cerebral volume loss for age. There are periventricular and deep white matter chronic small vessel ischemic changes. Brainstem appears normal. Diffusion-weighted images show no acute infarct. No chronic ischemic insults. Normal intravascular flow voids are present. Skull and face: Calvarial bone marrow is normal in signal. Orbits are normal. Sinuses: Sinuses and mastoids are clear. IMPRESSION: 1. No evidence of ischemia. 2. Left mastoid effusion, likely of little clinical significance. Dictated by: Ava Howe M.D. on 01/25/2025 at 13:17 Approved by: Ava Howe M.D. on 01/25/2025 at 13:20
[2025-01-25] MEDS: ATORVASTATIN 20 MG TABLET 40 MG PO (00:06)
[2025-01-25 00:26] VITALS: BP 127/64; PULSE 85; RESP 16; O2SAT 100
[2025-01-25 04:17] VITALS: BP 124/62; PULSE 79; RESP 16; O2SAT 99
[2025-01-25] MEDS: ACETAMINOPHEN 325 MG TABLET 975 MG PO (04:22)
[2025-01-25] MEDS: LEVOTHYROXINE 50 MCG TABLET PO (05:24)
--- NOTE | 2025-01-25 07:12 | P.DS_ITS ---
History of Present Illness History of Present Illness Date Patient Seen: 01/25/25 Time Patient Seen: 15:04 Chief complaint: Code stroke-LKW 01/23/25 2200,ataxia,blurred vision Narrative: This is a 60-year-old female with a history of lupus, Sjogren's disease, hypothyroidism, TIA, GHASSAN, hypertension, venous insufficiency, migraine headaches, osteoarthritis and propofol reaction who presents with a neurological conundrum. Two days ago she experienced a very stressful episode driving a longer distance than usual. The following day, yesterday, she was fatigued all day long and experienced a headache. She had episodes of mumbling, stumbling, difficulty controlling her left leg, chest pain. She was nauseated. Her blood pressure was 179/58, her speech was slurred and she was using incorrect words in sentences. She had a similar episode in August of 2024 and was transported by air to [facility] where she was evaluated and diagnosed with a TIA. She has perceived her left side to be weaker since then. This is an intermittent symptom as is the verbal confusion. She has no other migraine symptoms such as visual aura or scotoma. She has been told after prior brain MRIs that she has classic migraine changes on imaging. On my interaction/examination in the ED she has no left-sided weakness and her speech is very clear along with her well above average mental processing and verbalization. She has a history of lupus and Sjogren's. Neurology stroke was consulted and recommended in addition to this negative CTA and CT head that she undergo repeat echocardiogram and MRIs of the brain and C-spine. She actually has an outpatient neurology appointment to workup this condition coming up in 3 more days in [place]. Discharge Providers Provider Date of admission: 01/24/25 15:34 Discharge Date: 01/25/25 Primary care physician: Bobby Nolan MD Consults: 01/24/25 15:13 Consult to Occupational Therapy Evaluate & Treat Comment: Physician Instructions: Evaluate and treat Consult to Physical Therapy Evaluate & Treat Comment: Physician Instructions: Evaluate and Treat Discharge provider: Flex Welsh MD Summary Hospital Course Hospital Course: This is a 60-year-old female with a history of lupus, Sjogren's disease, hypothyroidism, TIA, GHASSAN, hypertension, venous insufficiency, migraine headaches, osteoarthritis and propofol reaction who presents with a neurological conundrum. Left-sided weakness with nausea/headache/slurred speech -her description of current left-sided weakness is not objectively present on exam but it appears that her symptoms are somewhat intermittent. -per neurology [facility] recommendations she was admitted and did a brain MRI and cervical spine MRI which did not show any cause of her symptoms.. She has mild DDD on cervical spine. -monitored on telemetry without arrhythmia. Normal Echocardiogram. -CTA head and neck along with CT head negative. -history of migraines and symptoms including anxiety/fatigue/headaches/nausea suggest a reasonable chance of her presentation being migraine related. When her headache and general symptoms returned this morning she received Imitrex without benefit. -after a long wait to get a Neurology outpatient appointment she has 1 coming up in 2 more days in [place]. -history of lupus and Sjogren suggest a possible autoimmune inflammatory condition. Checked: ESR 5 and CRP result pending. Lumbar spine degenerative disc disease -patient has had radiofrequency ablation and follows up with orthopedics. -this could be the cause of or contributing to her intermittent left-sided weakness. Hyponatremia -sodium 133 on admission, repeat on 01/25 is 131 -secondary to hydrochlorothiazide. Likely chronic. Lupus/Sjogren's disease -ESR 5 and CRP result pending. -continue hydroxychloroquine Anxiety -patient says she has stopped taking Wellbutrin. Hypothyroidism -continue levothyroxine. No longer on [place] Thyroid. In summary there are no signs of stroke or risks for TIA/stroke identified. Her symptoms did not respond to classic migraine treatment with Imitrex. Upcoming neurology consultation will be very helpful at differentiating her situation. She might have some form of or an atypical systemic exertion intolerance disease/myalgic encephalomyelitis? Status at Discharge Cognitive/behavioral status at discharge: oriented Functional status at discharge: independent ambulation Overall status at discharge: patient is back to baseline Time Spent with Patient Time spent: Greater than 30 minutes Exam Vital Signs (past 8 hours): - 01/25/25 00:26 01/25/25 04:17 Pulse Rate 85 79 Respiratory Rate 16 16 Blood Pressure 127/64 124/62 Pulse Oximetry 100 99 Oxygen Delivery Method Room Air Oxygen Flow Rate 0 Narrative Exam Narrative: Alert and oriented x3. No apparent distress. She does appear fatigued. Heart is regular rate and rhythm without murmur Lungs are clear to auscultation bilaterally There is no ankle edema All extremities move with normal strength. Therapy note is reviewed. Cranial nerves appear to be functional. Objective Labs 01/24/25 11:23 01/25/25 06:18 Labs: Laboratory Results - last 24 hr 01/24/25 01/24/25 01/24/25 11:06 11:23 11:33 WBC 4.6 RBC 4.65 Hgb 13.6 Hct 38.0 MCV 81.8 MCH 29.2 MCHC 35.7 RDW 13.1 Plt Count 170 Neut % (Auto) 65.2 Lymph % (Auto) 22.3 L [place] % (Auto) 8.9 Eos % (Auto) 3.0 Baso % (Auto) 0.6 Neut # (Auto) 3000 Lymph # (Auto) 1000 L [place] # (Auto) 400 Eos # (Auto) 100 Baso # (Auto) 0 ESR PT 12.4 INR 1.1 APTT 29 Sodium 133 L Potassium 3.7 Chloride 98 Carbon Dioxide 25 BUN 14 Creatinine 0.85 Estimated GFR > 60 BUN/Creatinine Ratio 16.5 Glucose 98 POC Whole Bld Glucose 89 Calcium 9.4 Total Bilirubin 1.4 H AST 41 H ALT 47 H Alkaline Phosphatase 87 Total Creatine Kinase 86 Troponin I < 0.012 C-Reactive Protein < 0.5 Total Protein 6.9 Albumin 4.4 Globulin 2.5 Albumin/Globulin Ratio 1.8 Urine Color Urine Appearance Urine pH Ur Specific [place] Urine Protein Urine Glucose (UA) Urine Ketones Urine Occult Blood Urine Nitrate Urine Bilirubin Urine Urobilinogen Ur Leukocyte Esterase Urine RBC Urine WBC Ur Squamous Epith Cells Urine Bacteria Ur Culture Indicated? Vol Urine Centrifuged U Opiates 300ng/mL cut Ur Oxycodone Screen Urine Methadone Screen Ur Barbiturates Screen U Tricyclic Antidepress Ur Phencyclidine Scrn Ur Amphetamines Screen U Methamphetamines Scrn Ur MDMA Scrn (Ecstasy) U Benzodiazepines Scrn Urine Cocaine Screen U Marijuana (THC) Screen Urine Specific [place] Ethyl Alcohol < 10 Ur Creatinine SARS-CoV-2 (PCR) Negative 01/24/25 01/24/25 01/24/25 12:07 12:07 12:31 WBC RBC Hgb Hct MCV MCH MCHC RDW Plt Count Neut % (Auto) Lymph % (Auto) [place] % (Auto) Eos % (Auto) Baso % (Auto) Neut # (Auto) Lymph # (Auto) [place] # (Auto) Eos # (Auto) Baso # (Auto) ESR PT INR APTT Sodium Potassium Chloride Carbon Dioxide BUN Creatinine Estimated GFR BUN/Creatinine Ratio Glucose POC Whole Bld Glucose 77 Calcium Total Bilirubin AST ALT Alkaline Phosphatase Total Creatine Kinase Troponin I C-Reactive Protein Total Protein Albumin Globulin Albumin/Globulin Ratio Urine Color Yellow Urine Appearance Clear Urine pH 7.0 Normal Ur Specific [place] <=1.005 Urine Protein Negative Urine Glucose (UA) Negative Urine Ketones Negative Urine Occult Blood Negative Urine Nitrate Negative Urine Bilirubin Negative Urine Urobilinogen 0.2 Ur Leukocyte Esterase Negative Urine RBC 0-1/hpf Urine WBC 0-1/hpf Ur Squamous Epith Cells 0-1 /hpf Urine Bacteria Occasional (0-1) Ur Culture Indicated? Cult not indicated Vol Urine Centrifuged 10ml (spun) U Opiates 300ng/mL cut Negative Ur Oxycodone Screen Negative Urine Methadone Screen Negative Ur Barbiturates Screen Negative U Tricyclic Antidepress Negative Ur Phencyclidine Scrn Negative Ur Amphetamines Screen Negative U Methamphetamines Scrn Negative Ur MDMA Scrn (Ecstasy) Negative U Benzodiazepines Scrn Negative Urine Cocaine Screen Negative U Marijuana (THC) Screen Negative Urine Specific [place] Normal Ethyl Alcohol Ur Creatinine Normal SARS-CoV-2 (PCR) 01/24/25 01/24/25 13:56 19:02 WBC RBC Hgb Hct MCV MCH MCHC RDW Plt Count Neut % (Auto) Lymph % (Auto) [place] % (Auto) Eos % (Auto) Baso % (Auto) Neut # (Auto) Lymph # (Auto) [place] # (Auto) Eos # (Auto) Baso # (Auto) ESR 5 PT INR APTT Sodium Potassium Chloride Carbon Dioxide BUN Creatinine Estimated GFR BUN/Creatinine Ratio Glucose POC Whole Bld Glucose 84 Calcium Total Bilirubin AST ALT Alkaline Phosphatase Total Creatine Kinase Troponin I C-Reactive Protein Total Protein Albumin Globulin Albumin/Globulin Ratio Urine Color Urine Appearance Urine pH Ur Specific [place] Urine Protein Urine Glucose (UA) Urine Ketones Urine Occult Blood Urine Nitrate Urine Bilirubin Urine Urobilinogen Ur Leukocyte Esterase Urine RBC Urine WBC Ur Squamous Epith Cells Urine Bacteria Ur Culture Indicated? Vol Urine Centrifuged U Opiates 300ng/mL cut Ur Oxycodone Screen Urine Methadone Screen Ur Barbiturates Screen U Tricyclic Antidepress Ur Phencyclidine Scrn Ur Amphetamines Screen U Methamphetamines Scrn Ur MDMA Scrn (Ecstasy) U Benzodiazepines Scrn Urine Cocaine Screen U Marijuana (THC) Screen Urine Specific [place] Ethyl Alcohol Ur Creatinine SARS-CoV-2 (PCR) PFSH Medical History (Updated 01/24/25 @ 19:30 by Bobby Rogers MD) Schatzki's ring Venous insufficiency Obstructive sleep apnea, adult Adverse effect of propofol Migraine Osteoarthritis HTN (hypertension) Lupus Sjogren's disease Hypothyroidism TIA (transient ischemic attack) UTI (urinary tract infection) Surgical History (Updated 01/24/25 @ 17:11 by Flex Welsh MD) H/O radiofrequency ablation (RFA) of nerve of lumbar spine H/O: History of hysterectomy, supracervical S/P appendectomy S/P cholecystectomy Family History (Updated 01/24/25 @ 17:12 by Flex Welsh MD) Mother Aortic stenosis Lymphoma Hypothyroidism Father Hypertension Hypothyroidism Hyperlipidemia Social History (Updated 01/24/25 @ 17:13 by Flex Welsh MD) marital status: household members: spouse Smoking Status: Never smoker alcohol intake: never Discharge Plan Discharge Plan Patient Disposition: Home Provider Discharge Comment: Follow up with Dr. Ovidio horn. Follow up with your new neurologist in 2 days. Discharge orders & Medications Prescriptions: Continued progesterone micronized 100 MG capsule 100 mg PO HS Qty: 90 1RF hydroxychloroquine [Plaquenil] 200 mg tablet 400 mg PO DAILY Qty: 0 Patient Comments: at night epinephrine 0.3 MG/0.3 ML auto-injector 0.3 mg IJ SEE INSTRUCTIONS Qty: 2 1RF levalbuterol tartrate [Xopenex HFA] 45 MCG/INH HFA aerosol inhaler 2 puff INH Q6HP PRN (Reason: shortness of breath or wheezing) Qty: 15 0RF atorvastatin 40 mg tablet 40 mg PO .PM aspirin 81 mg tablet,delayed release (DR/EC) 81 mg PO DAILY losartan 50 mg tablet 50 mg PO BID levothyroxine 75 mcg tablet 75 mcg PO DAILY metoprolol succinate 25 mg tablet extended release 24 hr 25 mg PO DAILY estradiol [Nighat] 0.025 mg/24 hr patch semiweekly 1 patch topical 2XW Patient Comments: WEDS AND SAT. cyclosporine 0.05 % dropperette 1 drp EYE-BOTH BID hydrochlorothiazide 12.5 mg PO DAILY omeprazole 20 mg tablet,delayed release (DR/EC) 20 mg PO DAILY Follow up/Referrals: Bobby Nolan MD [Primary Care Provider, [facility]] Visit Report/Discharge Packet Stand Alone Forms: Patient Portal/API, Stroke Signs & Symptoms Discharge Data Primary Care Provider: Bobby Nolan Quality VTE Deep Vein Thrombosis/Pulmonary Embolism Present on Admission: No
[2025-01-25 07:13] LABS: Blood Urea Nitrogen 15 mg/dL (7-17); Calcium 9.1 mg/dL (8.4-10.2); Carbon Dioxide 24 mmol/L (22-32); Chloride 100 mmol/L (98-107); Estimated Glomerular Filt Rate > 60 mL/min (>60); Glucose 96 mg/dL (70-99); HEMOLYSIS < 15 (0-50); Potassium 3.5 mmol/L (3.4-5.1); Sodium 131 mmol/L (137-145)
[2025-01-25 08:00] VITALS: BP 114/64; PULSE 78; RESP 14; TEMP 35.6; O2SAT 98
[2025-01-25] MEDS: ENOXAPARIN 40 MG/0.4 ML SYRINGE SUBCUT (08:49)
[2025-01-25] MEDS: ASPIRIN EC 81 MG TABLET PO (08:51)
[2025-01-25] MEDS: SODIUM CHLORIDE 0.9% FLUSH 10 ML IV (08:52)
[2025-01-25] MEDS: SIMETHICONE 80 MG TABLET PO (10:34)
[2025-01-25] MEDS: PROMETHAZINE 25 MG TABLET PO (11:31)
--- NOTE | 2025-01-25 11:55 | PT.IIE ---
Surgical History (Last Updated 01/24/25 @ 17:11 by Flex Welsh MD) H/O radiofrequency ablation (RFA) of nerve of lumbar spine H/O: History of hysterectomy, supracervical S/P appendectomy S/P cholecystectomy Medical History (Last Updated 01/24/25 @ 17:11 by Flex Welsh MD) Adverse effect of propofol HTN (hypertension) Hypothyroidism Lupus Migraine Obstructive sleep apnea, adult Osteoarthritis Schatzki's ring Sjogren's disease TIA (transient ischemic attack) UTI (urinary tract infection) Venous insufficiency Physical Therapy Inpatient Evaluation/Re-Eval M1 PT/OT-IP Prior Functional Status Start: 01/25/25 12:33 Freq: NEEDED Status: Active Protocol: Document 01/25/25 11:55 AB (Rec: 01/25/25 12:53 AB Desktop) Medical Review Prior Functional Status Medical History Yes Reviewed Communication able to make needs known Mobility and Gait pt stated that she was modified independent with all mobilities and ambulation without AD but occasionally uses a SPC for outdoor mobility or most of the the time , family holds on to her to steady her; stated that she had balance issues for a long time Social History Household Members spouse Living Arrangements House Number of Floors ( Two Floors Floors) Number of Stairs To pt stays on main level of the house Enter/Railing? one step to enter; can also use a ramp Home Environment Standard Height Toilet,Tub/Shower,Ramp Home Equipment Front Wheel Walker,Shower Seat without Backrest,Hand Held Shower M2 PT-IP Current Condition Start: 01/25/25 12:33 Freq: NEEDED Status: Active Protocol: Document 01/25/25 11:55 AB (Rec: 01/25/25 12:53 AB Desktop) Physical Therapy Current Condition Current Condition Evaluation Date 01/25/25 Treatment Diagnosis R/O CVA; difficulty in walking Onset Date 01/24/25 M3 PT-IP Subjective Start: 01/25/25 12:33 Freq: NEEDED Status: Active Protocol: Document 01/25/25 11:55 AB (Rec: 01/25/25 12:53 AB Desktop) Subjective Physical Therapy Visit Type Type Initial Evaluation Visit Start Time 11:55 Visit Stop Time 12:30 Number of POST ANESTHESIA CARE UNIT NURSE Visits 0 Physical Therapy Visit Comments Patient Comments c/o nausea and dizziness M4 PT-IP Mobility and Gait Start: 01/25/25 12:33 Freq: NEEDED Status: Active Protocol: Document 01/25/25 11:55 AB (Rec: 01/25/25 12:53 AB Desktop) PT-Bed Mobility Assessment Supine to Sit Supine to Sit Independent PT-Transfer Assessment Sit to and From Stand Sit to and from Independent,1 Person Assistance Stand Equipment Transfer Assistive None Device Orthotic/Prosthetic No Devices or Brace: Transfers Transfer Destination Toilet Transfer Technique ambulated Transfer Ability Level of Assist Standby Assistance,1 Person Assistance,Use of Upper Extremities Comments Mobility Comments checked pt earlier this morning but with c/o nausea and wants to rest and get her meds first. checked back on pt after a few hours and agreed to do PT. obtained PLOF and home set up. completed supine to sit mod I. pt requested to use the toilet and ambulated to the toilet SBA without AD. pt tends to hold on to bed/wall for support. pt c/o dizziness and stated that it might be due to the new medication she was given. pt able to do her toileting needs and ambulated to the sink SBA without AD. completed handwashing and able to maintain standing balance SBA. ambulated to chair. BP checked: 161/89 NH: 77. pt rested and agreed to ambulate more in room and completed ~ 40 ft SBA. unsteady gait but without LOB. pt with chronic LBP and c/o LLE weakness. checked LE strength and LLE just slightly weaker that R. stated that she has chronic BLE numbness due to her back problems. pt also presents with forward head posture and cued to correct. pt completed up/down step stool holding on to bed rail for support CGA and cues. pt sat back on chair. positioned on the chair. call light and table placed within reach. informed nurse regarding c/o dizziness and BP Gait Assessment Gait Gait Assistance Standby Assistance Required: Distance (Feet) 40 Able to Maintain Yes Weight Bearing Status During Gait Assistive Devices Assistive Device None Orthotic/Prosthetic No Devices or Brace: Gait Deviations General Gait Pattern Decreased Stride Length,Decreased Feet Clearance Factors Limiting Gait Function Factors Limiting Decreased Activity Tolerance,Decreased Sensation, Gait Function Decreased Strength,Difficulty Following Directions,Poor Balance,Poor Safety Awareness Stair Climbing Assessment Evaluation Level of Assist On Standby Assistance Stairs Devices Stair Climbing Left Railing Assistive Devices Technique/Endurance Stair Climbing Ascend and Descend Direction Stair Climbing Step to Step Technique Number of Steps 1 Climbed Query Text: Stair Climbing Set # 1 Repetitions (reps) PT-Balance Assessment Sitting Balance and Reactions Static Sitting Normal Balance Ability Dynamic Sitting Normal Balance Ability Standing Balance and Reactions Static Standing Good Balance Ability Dynamic Standing Fair Balance Ability Device Used without AD M5 PT-IP Objective Assessments Start: 01/25/25 12:33 Freq: NEEDED Status: Active Protocol: Document 01/25/25 11:55 AB (Rec: 01/25/25 12:53 AB Desktop) Orientation Orientation/Cognition Level of Alertness Alert Orientation Name,Age,Birthday,Month,Date,Year,Day of Week,Place, Situation Language Function No Deficits Noted Ability Safety Awareness Decreased Safety Awareness Memory Description No Deficits Noted Gross Range of Motion Lower Extremity ROM Assessment Within Functional Limits Strength Lower Extremity Strength Assessment Within Functional Limits Hip R: 4/5 L: 4-/5 Knee 4+/5 Sensation Assessment Comments Sensation Comments chronic numbness on B feet Muscle Tone Muscle Tone WNL Yes M6 PT-IP Treatment Start: 01/25/25 12:33 Freq: NEEDED Status: Active Protocol: Document 01/25/25 11:55 AB (Rec: 01/25/25 12:53 AB Desktop) Physical Therapy Treatment Education Education Provided Safety M7 PT-IP Assessment and Plan Start: 01/25/25 12:33 Freq: NEEDED Status: Active Protocol: Document 01/25/25 11:55 AB (Rec: 01/25/25 12:53 AB Desktop) PT Summary Assessment and Plan Potential Rehabilitation Fair Potential Status of Condition Stable at Evaluation Summary Impairments Pain,Strength,Balance,Cognition,Gait Assessment Summary pt is a 60 y/o F who is admitted to r/o CVA. pt is modified independent with bed mobility and SBA for transfers and ambulation without AD. Goals Transfer Goal Independent Gait Goal Independent Gait Distance 200 Other Goals up/down 1 step mod I Days to Meet Goals 3 Frequency of Treatment Frequency Of Once a Day Treatment Treatment Plan Physical Therapy Bed Mobility Training,Transfer Training,Gait Training, Treatment Plan Therapeutic Exercise,Balance Retraining,Discharge Planning,Hot or Cold Pack,Neuromuscular Re-ed, Coordination Retraining,Manual Therapy Recommendations To Nursing Amount of Assist 1 Person Assist Needed Discharge Recommendations PT Discharge Home with Assistance,Outpatient PT Recommendations Transportation Needs Private Vehicle at Discharge - PT assist 1
[2025-01-25 12:00] VITALS: BP 161/81; PULSE 77
--- NOTE | 2025-01-25 15:44 | CM.DANOTE ---
B DCP Assessment note pt is a 60yo F admitted with potential TIA. per hospitalist note, imaging shows no new TIA and symptoms are more likely migraine. hx of TIA August 2024. history of lupus, Sjogren's disease, hypothyroidism, TIA, GHASSAN, hypertension, venous insufficiency, migraine headaches, osteoarthritis and propofol reaction. already has plans for F/u in OP setting for neurological condition on Monday. 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 lives with spouse Andrew on [place]. per PT cleared for safe at home with spouse. per RN, no obvious DCP/CM needs at this time. per provider, if MRI comes back clear will dc home today. unable to meet with pt today due to triaging needs. P: dc home today with spouse support. no CM needs identified at this time. will continue to follow as needed in case any DCP needs should arise JESI Zavala Discharge Planning/Care Management CM Discharge Assessment Start: 01/24/25 16:06 Freq: Status: Active Protocol: Document 01/25/25 15:38 (Rec: 01/25/25 15:39 [id number]) Discharge Planning Assessment Assigned Discharge JESI [place] [employer] Specialist Provider Bobby Nolan [facility] DPOA/Assigned Andrew, spouse Designee Name Contact Information [phone] Advance Directives? No History Provided By Patient Prior Living House Arrangements Household Members spouse Type of Drives own vehicle transporation used prior to admit Independent with ADL Yes 's Is patient alert and Yes oriented? Barriers to No Discharge Discharge Plan Home Referrals Initiated None needed Review Status In Process Please Provide Date 01/25/25 Initial DC Assessment Was Performed Next Review Type Continued Stay Review
--- NOTE | 2025-01-25 15:45 | PC.NURSE ---
Discharge note: Discharge instructions given to patient, discussed importance of F/U with PMD and Neurology appt on 01/27. Discussed importance of home safety and signs of worsening symptoms. Independently ambulatory in room and dressed self. Both patient and spouse both verbalized understanding of discharge instructions. Home via private vehicle accompanied by spouswe
== END 2025-01-25 16:07 | disposition home or self-care (01) ==
LOC: ED 11:17 → AC 16:42
PROVIDERS: Admitting Provider Family Medicine; Emergency Provider Emergency Medicine; PCP Family Medicine; Referring Provider Emergency Medicine; Visit Provider Family Medicine
DX: R29.818 Other symptoms and signs involving the nervous system (principal); H53.8 Other visual disturbances; R26.0 Ataxic gait; G81.94 Hemiplegia, unspecified affecting left nondominant side; E87.1 Hypo-osmolality and hyponatremia; M35.00 Sjogren syndrome, unspecified; I10 Essential (primary) hypertension; I87.2 Venous insufficiency (chronic) (peripheral); M19.90 Unspecified osteoarthritis, unspecified site; F41.9 Anxiety disorder, unspecified; E03.9 Hypothyroidism, unspecified; G47.33 Obstructive sleep apnea (adult) (pediatric); M51.369 Other intervertebral disc degeneration, lumbar region without mention of lumbar back pain or lower extremity pain; Z86.73 Personal history of transient ischemic attack (TIA), and cerebral infarction without residual deficits; R29.702 NIHSS score 2
CPT/HCPCS: 36415; 70450; 70496; 70498; 70551; 72141; 80048; 80053; 80305; 80320; 81001; 82550; 82962; 84484; 85025; 85610; 85651; 85730; 86140; 87635; 93005; 93306; 96372; 96374; 97161; 97530; 99284; G0378; J1650; J2405; Q9967